=== PATIENT | male | born 1960 | race Caucasian/White ===

== ENCOUNTER 2018-11-14 22:43 | Emergency (ER) | payer MEDICARE, SELFPAY ==
[2018-11-14] VITALS (15 sets, daily range): BP systolic 129–182; BP diastolic 80–91; PULSE 81–94; RESP 9–22; TEMP 36.7; O2SAT 91–100
--- NOTE | 2018-11-14 00:25 | DI.RAD_ITS ---
SYMPTOMS/DIAGNOSIS: LT SIDED PAIN AFTER FALL PA AND LATERAL CHEST AND LEFT RIBS: Comparison is made with chest x-ray dated 6Dec17. The heart size is normal. The aorta shows calcification but is normal in diameter. No pneumothorax is seen. Four views of the left ribs were performed. There is a question of a nondisplaced fracture of the left fifth rib. Degenerative changes are seen in the spine. There has been surgical resection of the distal clavicles bilaterally. Metallic anchors are noted in the left humeral head. IMPRESSION: Question of nondisplaced fracture of the left fifth rib. No evidence of pneumothorax.
[2018-11-14 23:01] LABS: Abs Immature Grans 0.01 k/cumm (0.0-0.09); Absolute Basophil Count 0.04 k/cumm (0.0-0.2); Absolute Lymphocyte Count 1.31 k/cumm (1.2-3.4); Absolute Monocyte Count 0.86 k/cumm (0.11-0.7); Absolute Neutrophil Count 6.47 k/cumm (1.2-6.7); Basophils % 0.5; HGB 14.8 g/dL (13.5-17.5); Immature Grans % 0.1; Lymphocytes % 15.1; Mean Corp. HGB Concentration 35.2 g/dL (32.0-36.0); Mean Corpuscular Hemoglobin 30.6 pg (27.0-33.0); Mean Platelet Volume 10.1 fL (8.0-11.0); Monocytes % 9.9; Neutrophils % 74.4; Platelet Count 197 x1000/uL (130-400); RBC 4.83 m/cumm (4.50-6.00); RBC Distribution Width 14.5 % (11.8-14.1); White Blood Cell Count 8.69 k/cumm (4.4-10.8)
[2018-11-14] MEDS: Normal Saline 1,000 ML 125 ML IV (23:01)
[2018-11-14 23:28] LABS: ALT 33 U/L (12-78); AST 22 U/L (15-37); Alkaline Phosphatase 85 U/L (46-116); Anion Gap 16.2 mmol/L (3-11); BUN 19 mg/dL (7-18); Bilirubin, Total 0.6 mg/dL (0.2-1.0); CO2 22.8 mmol/L (21.0-32.0); CREATININE 1.18 mg/dL (0.70-1.30); Calcium 8.9 mg/dL (8.5-10.1); Chloride 98 mmol/L (98-107); Glucose 150 mg/dL (70-100); NT-proBNP 655 pg/mL; Sodium 137 mmol/L (136-145); Total Protein 7.6 g/dL (6.4-8.2); Troponin I 0.02 ng/mL (0.00-0.06)
[2018-11-14 23:31] LABS: Potassium 2.8 mmol/L (3.5-5.1)
[2018-11-14] MEDS: Potassium Chloride 20 MEQ TABCR 40 MEQ PO (23:45)
--- NOTE | 2018-11-14 23:56 | ED.GENADUL_ITS ---
Discharge Plan Disposition Patient Disposition: HOME Condition: Fair Discharge Details Chief Complaint: Chest Pain Clinical Impression: Fracture of rib, Acute hypokalemia Primary Care Provider: Alex Daniels ED Provider: Pepper Pina Home Meds and New Rx's Prescriptions: New potassium chloride 20 mEq tablet extended release 20 meq PO DAILY Qty: 14 RF: 0 ondansetron HCl [Zofran] 4 mg tablet 4 mg PO QID PRN (Reason: nausea and vomiting) Qty: 10 RF: 0 tramadol 50 mg tablet 50 mg PO TID PRN (Reason: pain) Qty: 7 RF: 0 Continued atorvastatin [Lipitor] 80 MG tablet 80 mg PO DAILY 90 Days Qty: 90 RF: 3 isosorbide mononitrate 30 MG tablet extended release 24 hr 30 mg PO DAILY 90 Days Qty: 90 RF: 3 metoprolol succinate 100 MG tablet extended release 24 hr 100 mg PO DAILY 90 Days Qty: 90 RF: 3 clopidogrel [Plavix] 75 MG tablet 75 mg PO DAILY 90 Days Qty: 90 RF: 3 amlodipine 10 MG tablet 10 mg PO HS 90 Days Qty: 90 RF: 3 nitroglycerin [Nitrostat] 0.4 MG tablet, sublingual 0.4 mg Sublingual DIRECTED PRNQty: 25 RF: 6 hydrochlorothiazide 25 MG tablet 25 mg PO DAILY 90 Days Qty: 90 RF: 3 aspirin [Aspir-Low] 81 MG tablet,delayed release (DR/EC) 81 mg PO DAILY RF: 0 melatonin 3 MG tablet 3 mg PO HS PRNRF: 0 acetaminophen 500 MG tablet 1,000 mg PO PRN PRNRF: 0 losartan 25 MG tablet 50 mg PO DAILY RF: 0 Discharge Instructions Instructions: Rib Fracture (ED), Hypokalemia (ED) Additional Instructions: You have a rib fracture over area of tenderness on chest x-ray. Your cardiac evaluation is reassuring, no evidence of heart attack at this time with a normal EKG and troponin as discussed. Encourage deep breathing to help prevent pneumonia, use incentive spirometer as advised by nursing staff. He may use Tylenol as needed for discomfort. You may augment this with the tramadol as prescribed. Take this medication only as prescribed and keep an safe place. Your potassium was low, this was replenished here but I have prescribed you a daily supplement to keep this up. We will need to have this rechecked with your primary care. Please call them tomorrow to schedule appointment in the next 48 hours. If you develop increased pain, shortness of breath, difficulty breathing or other new/worsening symptoms please seek care urgently once again Referrals: Alex Daniels DO [Primary Care Provider] - Discharge Data Discharge Date/Time-TO BE ENTERED AT DEPARTURE: 11/15/18 02:35 Medical Decision Making Patient 58-year-old male presents today with chief complaint of left-sided chest pain. He reports that pain began after falling 3 days ago. He reports that he was walking outside at night when he tripped over a rock and fell striking the left side of his chest. Patient has ecchymosis and pain to palpation over the left lateral chest wall. Patient does have history of [place] with stent placement. Is concerned that this pain feels similar to when he had a heart attack historically. He reports the pain is not exertional but rather constant. He does have increased pain particularly rotational movements but not as much as simple ambulation. Patient also has been endorsing some fatigue and weakness of the past several weeks. Patient did come back from [place], his mother recently, and has not been evaluated by his primary care regarding this chronic complaint. He denies any fevers or chills. Patient is endorsing pain in the left shoulder but reports the chest pain does not radiate to that, rather patient has chronic pain in the left shoulder that was exacerbated with the fall. Endorses shortness of breath associated with deep breathing and pain elicited with this. On exam, patient appears to be an obese male in no acute distress. He did appear uncomfortable with movements but quickly returns to a comfortable position. Area of ecchymosis is noted on the left lateral chest wall. No palpable deformity. Lungs are clear in all stevens. No palpable bony abnormality in the shoulder. Trauma exam is otherwise unremarkable. Cardiac exam is without acute abnormality. Concern for possible traumatic injury to the chest wall, versus ACS. Patient is not tachycardic, hypoxic. Low suspicion for pulmonary embolism at this time. Patient has not had any infectious symptoms. No cough, fevers or chills. He does report that he has had nausea and has had intermittent vomiting for the past several weeks. Denies abdominal pain, abdomen is soft and nontender at this time. No back pain. EKG was reviewed by Dr. Bazzi. It was compared to previous. She notes findings suggestive of left bundle branch block but this appears to be chronic and unchanged from previous. Patient is currently normal sinus rhythm with a rate of 88. Labs reviewed, troponin is 0.02. Potassium is low at 2.8. We will replenish this 40 mEq orally and 20 IV. This is likely associated with the patient's vomiting. This may also be with striving of the anion gap to 16. BNP is 655. Chest x-ray reviewed by radiologist: FINDINGS: Bones/joints: Subtle cortical irregularity involving the left lateral fifth rib may reflect a subtle hairline fracture best demonstrated on the oblique image. Soft tissues: Normal. IMPRESSION: Subtle cortical irregularity involving the left lateral fifth rib may reflect a subtle hairline fracture best demonstrated on the oblique image. FINDINGS: Lungs: Unremarkable. No consolidation. Pleural space: Unremarkable. No pleural effusion. No pneumothorax. Heart/Mediastinum: Unremarkable. No cardiomegaly. Bones/joints: Widening of the a.c. joints bilaterally may reflect a.c. joint dislocation. This is age-indeterminate. Clinical correlation recommended. IMPRESSION: Widening of the a.c. joints bilaterally may reflect a.c. joint dislocation. This is age-indeterminate. Clinical correlation recommended. Patient is not point tender at the AC joint at this time. He does have cervical shoulder issues as well as surgical correction. I do not feel that this is acute at this time. I discussed the diagnosis of rib fracture with the patient. He will be given incentive spirometer. We discussed the risks associated with shallow breathing and pneumonia. Encourage deep breathing. At this point, his symptoms have been ongoing for the past 3 days and troponin remains 0.02, and I feel that repeat is necessarily at this time. His chest pain is likely driven from his acute traumatic injury. I did advise that he will need to continue with potassium supplementation, prescription for this will be given. We will also prescribe Zofran to help the nausea vomiting. Advise close follow-up with primary care physician, and as for him to be seen in the next 2 to 3 days. He was given strict return precautions. All the questions and concerns were addressed and he is in agreement this plan HPI General Mode of arrival: EMS . Date/Time Provider Initiated Documentation: 11/14/18 22:47 . Limitations to Documentation: no limitations . Information obtained by: patient, EMS and RN notes reviewed . History of Present Illness 58 year old M presents to the emergency department with the chief complaint of left sided chest pain, described as moderate, Quality is described as aching, and is localized to the chest. Patient reports no radiation. Patient started experiencing this day(s) (3) and it has been constant. No relieving factors improve symptom(s), Movement worsens symptoms . Patient notes chest pain and shortness of breath (endorses pain with inspiration); denies cough, diaphoresis, fever/chills, headaches, nausea/vomiting, rash, syncope and weakness. Patient did receive the following treatments prior to arrival, other (received nitro and fentanyl from EMS) Related Data Home Medications Medication Instructions Recorded Confirmed aspirin [Aspir-Low] 81 mg PO DAILY 08/04/13 11/14/18 acetaminophen 1,000 mg PO PRN PRN 12/09/17 11/14/18 melatonin 3 mg PO HS PRN 12/09/17 11/14/18 amlodipine 10 mg PO HS 90 Days #90 tab-cap 01/06/18 atorvastatin [Lipitor] 80 mg PO DAILY 90 Days #90 tab-cap 01/06/18 clopidogrel [Plavix] 75 mg PO DAILY 90 Days #90 tab-cap 01/06/18 hydrochlorothiazide 25 mg PO DAILY 90 Days #90 tab-cap 01/06/18 isosorbide mononitrate 30 mg PO DAILY 90 Days #90 tab-cap 01/06/18 metoprolol succinate 100 mg PO DAILY 90 Days #90 tab-cap 01/06/18 nitroglycerin [Nitrostat] 0.4 mg SUBLINGUAL DIRECTED PRN 01/06/18 11/14/18 #25 tab-cap losartan 50 mg PO DAILY 11/14/18 11/14/18 ondansetron HCl [Zofran] 4 mg PO QID PRN #10 tab 11/15/18 potassium chloride 20 meq PO DAILY #14 tab 11/15/18 tramadol 50 mg PO TID PRN #7 tab 11/15/18 Previous Rx's Medication Instructions Recorded amlodipine 10 mg PO HS 90 Days #90 tab-cap 01/06/18 atorvastatin [Lipitor] 80 mg PO DAILY 90 Days #90 tab-cap 01/06/18 clopidogrel [Plavix] 75 mg PO DAILY 90 Days #90 tab-cap 01/06/18 hydrochlorothiazide 25 mg PO DAILY 90 Days #90 tab-cap 01/06/18 isosorbide mononitrate 30 mg PO DAILY 90 Days #90 tab-cap 01/06/18 metoprolol succinate 100 mg PO DAILY 90 Days #90 tab-cap 01/06/18 ondansetron HCl [Zofran] 4 mg PO QID PRN #10 tab 11/15/18 potassium chloride 20 meq PO DAILY #14 tab 11/15/18 tramadol 50 mg PO TID PRN #7 tab 11/15/18 Allergies Allergy/AdvReac Type Severity Reaction Status Date / Time codeine Allergy Intermediate Wheezing Unverified 11/14/18 22:50 Review of Systems Constitutional Reports as per HPI, Denies chills, Denies fever(s), Denies headache(s), Denies lethargy and Denies poor appetite Eyes Denies change in vision ENT Denies dizziness and Denies headache(s) Cardiovascular Reports as per HPI, Reports chest pain, Reports chest pain at rest, Reports chest pain with activity, Denies syncope, Denies pedal edema, Denies leg edema, Denies lightheadedness, Denies radiating jaw, neck or arm pain (has isolated left shoulder pain as well, nonradiating), Denies palpitations, Reports dyspnea (pain with deep inspiration makes him feel SOB) and Denies dyspnea on exertion Respiratory Reports as per HPI, Denies chest congestion, Denies cough, Denies pain on inspiration, Denies pain with cough, Reports dyspnea (pain with deep inspiration makes him feel SOB), Denies dyspnea on exertion and Denies wheezing Gastrointestinal Reports as per HPI, Denies abdominal pain, Denies diarrhea, Denies nausea and Denies vomiting Genitourinary Denies system reviewed and no additional complaints, except as docu (denies change in urinary habits) Musculoskeletal Reports as per HPI, Denies back pain and Reports other (chronic left shoulder pain) Integumentary/Breasts Reports as per HPI, Denies rash and Reports other (ecchymosis left chest) Neurologic Reports as per HPI, Denies dizziness, Denies syncope and Denies headache(s) Endocrine Denies palpitations Allergic/Immunologic Denies wheezing PFSH Family History Mother No problems noted. Father No problems noted. Brother No problems noted. Social History Smoking/Tobacco Use Status: Current every day Tobacco Type: cigarettes Smoking cigarettes per day: 15 Alcohol Intake: current Alcohol Intake frequency: a few times a month Drug use: Never Do you feel safe in your relationship?: Yes Exam Const General: cooperative, healthy appearing, uncomfortable (appears uncomfortable with movement), no acute distress and well developed Nutritional Appearance: well nourished and overweight Orientation: alert, awake and oriented x3 HENMT Head: normal to inspection Ears: hearing grossly normal bilaterally Mouth: moist mucous membranes Chest Chest: normal inspection of the chest, no crepitus and localized rib tenderness with anteroposterior compression (left side with associated ecchymosis) Resp Effort & Inspection: normal respiratory effort, able to speak in complete sentences and no respiratory distress Auscultation: clear to auscultation bilaterally, no rales, no rhonchi and no wheezes Cardio Rate: regular rate Rhythm: regular rhythm Heart Sounds: S1 normal and S2 normal GI Inspection: normal to inspection, no edema and non-distended Palpation: soft, no hepatosplenomegaly, not firm, no guarding, not rigid and nontender Auscultation: normal bowel sounds Back/Spine/Pelvis Back: no CVA tenderness Thoracic/Lumbar Spine: thoracic and lumbar spine normal to inspection Skin General skin exam: no rashes or lesions noted Trauma: no lacerations or abrasions Neuro General: alert, awake and oriented x3 Cognition: normal cognition Speech: speech normal Gait: normal gait Extrem General: normal to inspection, normal capillary refill, no pedal edema, no calf tenderness and normal gait Psych Appearance: grossly normal and well kempt Mental Status: mental status grossly normal Speech and Movement: speech and movement normal
[2018-11-15] VITALS (24 sets, daily range): BP systolic 137–178; BP diastolic 77–89; PULSE 68–85; RESP 12–20; TEMP 36.4; O2SAT 93–99
[2018-11-15 00:11] LABS: PTT Activated 23.2 sec (21.0-31.4); Prothrombin Time 10.3 sec (9.3-11.0)
[2018-11-15] MEDS: POTASSIUM CHLORIDE 10 MEQ/100 ML BAG 100 MEQ IVPB ×2 (00:11→01:15)
[2018-11-15] MEDS: Potassium Chloride 20 MEQ TABCR 40 MEQ PO (00:34)
--- NOTE | 2018-11-15 00:40 | DI.VRAD_ITS ---
EXAM: XR Left Ribs, 2 Views EXAM DATE/TIME: 11/14/2018 10:50 PM CLINICAL HISTORY: 58 years old, male; Injury or trauma; Initial encounter; Blunt trauma (contusions or hematomas); Chest wall and rib area, left side; Injury date: 11/13/18; Injury details: Fell landing on left side. Left anterior chest wall pain. No specific pain site but more spread out on upper anterior L side of chest; Prior surgery; Surgery date: 6+ months; Surgery type: Shoulder surgery; Patient HX: Fall with upper anterior left sided chest wall pain TECHNIQUE: Imaging protocol: XR Left ribs, 2 views. COMPARISON: CR PORTABLE CHEST ONE VIEW 06/09/2017 2:39 PM FINDINGS: Bones/joints: Subtle cortical irregularity involving the left lateral fifth rib may reflect a subtle hairline fracture best demonstrated on the oblique image. Soft tissues: Normal. IMPRESSION: Subtle cortical irregularity involving the left lateral fifth rib may reflect a subtle hairline fracture best demonstrated on the oblique image. EXAM: XR Chest, 2 Views EXAM DATE/TIME: 11/14/2018 10:50 PM CLINICAL HISTORY: 58 years old, male; Injury or trauma; Initial encounter; Blunt trauma (contusions or hematomas); Chest wall and rib area, left side; Injury date: 11/13/18; Injury details: Fell landing on left side. Left anterior chest wall pain. No specific pain site but more spread out on upper anterior L side of chest; Prior surgery; Surgery date: 6+ months; Surgery type: Shoulder surgery; Patient HX: Fall with upper anterior left sided chest wall pain TECHNIQUE: Imaging protocol: XR of the chest, 2 views. COMPARISON: CR PORTABLE CHEST ONE VIEW 06/09/2017 2:39 PM FINDINGS: Lungs: Unremarkable. No consolidation. Pleural space: Unremarkable. No pleural effusion. No pneumothorax. Heart/Mediastinum: Unremarkable. No cardiomegaly. Bones/joints: Widening of the a.c. joints bilaterally may reflect a.c. joint dislocation. This is age-indeterminate. Clinical correlation recommended. IMPRESSION: Widening of the a.c. joints bilaterally may reflect a.c. joint dislocation. This is age-indeterminate. Clinical correlation recommended. Dictated and Authenticated by: Epifanio Staton MD. Ordering:MARK Pabon MD
[2018-11-15] MEDS: traMADol 50 MG TAB PO (01:53)
[2018-11-15] MEDS: Acetaminophen 500 MG TAB 1000 MG PO (02:29)
--- NOTE | 2018-11-16 08:30 | PDOC.ERCMPRO ---
Care Management Progress Note 11/15-Dr. Ramirez requested assistance with a PCP (Jeremiah) f/u in 2-3 days for CP and hypokalemia. Referral faxed to [facility] this am.
== END 2018-11-15 02:35 | disposition home or self-care (01) ==
LOC: ER 11-15 02:43
PROVIDERS: Emergency Provider Physician Assistant; PCP Family Medicine
DX: S22.32XA Fracture of one rib, left side, initial encounter for closed fracture (principal); E87.6 Hypokalemia; R11.2 Nausea with vomiting, unspecified; W01.0XXA Fall on same level from slipping, tripping and stumbling without subsequent striking against object, initial encounter
CPT/HCPCS: 36415; 80053; 93005; 96361; 96365; 96366; 96367; 96368; 96375; 99285; 71046; 71100; 83735; 83880; 84484; 85025; 85610; 85730; 93010; J3480

== ENCOUNTER 2019-01-28 19:20 | Inpatient (IN) | payer MEDICARE, SELFPAY ==
[2019-01-28] VITALS (21 sets, daily range): BP systolic 130–178; BP diastolic 68–88; PULSE 77–110; RESP 10–22; TEMP 36.6–37.1; O2SAT 95–99
--- NOTE | 2019-01-28 19:32 | DI.RAD_ITS ---
SYMPTOM/DIAGNOSIS: LT SIDED CHEST PAIN CHEST X-RAY: Portable AP view. Comparison CT scan from the same day. Comparison chest x- ray is 11/14/18 Heart size and pulmonary vasculature are within normal limits. There is a healing fracture of the anterior aspect of the left 2nd rib. This can be visualized on the CT scan from the same day. The lungs are clear. No effusions or pneumothoraces are identified. IMPRESSION: No acute pulmonary process.
--- NOTE | 2019-01-28 19:33 | W.ED.GENAD ---
Discharge Plan Disposition Patient Disposition: [facility] INPATIENT Condition: Stable Discharge Details Chief Complaint: Chest Pain Clinical Impression: Hypertensive urgency, Bilateral claudication of lower limb Primary Care Provider: Alex Daniels ED Provider: Ammon Rodriguez Home Meds and New Rx's Prescriptions: No Action atorvastatin [Lipitor] 80 MG tablet 80 mg PO DAILY 90 Days Qty: 90 RF: 3 isosorbide mononitrate 30 MG tablet extended release 24 hr 30 mg PO DAILY 90 Days Qty: 90 RF: 3 metoprolol succinate 100 MG tablet extended release 24 hr 100 mg PO DAILY 90 Days Qty: 90 RF: 3 amlodipine 10 MG tablet 10 mg PO HS 90 Days Qty: 90 RF: 3 nitroglycerin [Nitrostat] 0.4 MG tablet, sublingual 0.4 mg Sublingual DIRECTED PRNQty: 25 RF: 6 hydrochlorothiazide 25 MG tablet 25 mg PO DAILY 90 Days Qty: 90 RF: 3 aspirin [Aspir-Low] 81 MG tablet,delayed release (DR/EC) 81 mg PO DAILY RF: 0 melatonin 3 MG tablet 3 mg PO HS PRNRF: 0 acetaminophen 500 MG tablet 1,000 mg PO PRN PRNRF: 0 losartan 25 MG tablet 50 mg PO DAILY RF: 0 potassium chloride 20 mEq tablet extended release 20 meq PO DAILY Qty: 14 RF: 0 ondansetron HCl [Zofran] 4 mg tablet 4 mg PO QID PRN (Reason: nausea and vomiting) Qty: 10 RF: 0 Medical Decision Making 58-year-old male, receipt of a smoker, with a history of coronary artery disease (prior inferior wall myocardial infarction 2009 status post right coronary artery stenting). Presents with chest pain he states began this morning associated with nausea and vomiting. States that he recently ran out of his long-acting nitrate and is not been taking it for approximately 7 to 10 days time. He states he is taking his other medications but may not have had a complete supply of meds since returning to [place] from living in [place]. He took 4-5 nitroglycerin at home with no change to his pain. He arrives with ongoing discomfort, pulses 100 with a blood pressure 175/79. EKG reveals lateral T wave inversions. 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 Patient with minimal response to nitroglycerin, given 4 mg of morphine with relief of discomfort. Laboratories reveal normal troponin and BNP. Potassium low at 2.9 and supplemented. Differential diagnosis includes hypertensive urgency, acute coronary syndrome, must exclude PE and possibly bowel obstruction given his vomiting. Patient referred for CT scan of the chest abdomen and pelvis which does not show any acute findings; it does reveal bilateral high-grade stenosis of the common iliac arteries. He is at risk for claudication which I did discuss with him. He remains pain-free. However, given his noncompliance with medications including long-acting nitrates, his ongoing cardiac risk factors and reset of his tobacco use, I do feel he merits admission for serial cardiac enzymes, potassium supplementation. Lab Data Lab results reviewed: Yes I reviewed the patient's lab results. Laboratory Results - last 24 hr 01/28/19 01/28/19 01/28/19 19:28 19:28 19:31 WBC Cancelled RBC Cancelled Hgb Cancelled Hct Cancelled MCV Cancelled MCH Cancelled MCHC Cancelled RDW Cancelled Plt Count Cancelled MPV Cancelled Immature Gran % Neutrophils % Lymphocytes % Monocytes % Eosinophils % Basophils % Absolute Neutrophils Absolute Lymphocytes Absolute Monocytes Absolute Eosinophils Absolute Basophils PT 9.9 INR 1.0 APTT 21.9 Sodium Cancelled Potassium Cancelled Chloride Cancelled Carbon Dioxide Cancelled Anion Gap Cancelled BUN Cancelled Creatinine Cancelled Estimated GFR/1.73 m2 Cancelled Glucose Cancelled Calcium Cancelled Total Bilirubin Cancelled AST Cancelled ALT Cancelled Alkaline Phosphatase Cancelled Troponin I Cancelled NT-Pro-B Natriuret Pep Total Protein Cancelled Albumin Cancelled 01/28/19 01/28/19 19:31 19:31 WBC 8.63 RBC 4.68 Hgb 14.3 Hct 40.1 MCV 85.7 MCH 30.6 MCHC 35.7 RDW 13.1 Plt Count 200 MPV 9.6 Immature Gran % 0.2 Neutrophils % 72.5 Lymphocytes % 19.2 Monocytes % 7.4 Eosinophils % 0.2 Basophils % 0.5 Absolute Neutrophils 6.25 Absolute Lymphocytes 1.66 Absolute Monocytes 0.64 Absolute Eosinophils 0.02 Absolute Basophils 0.04 PT INR APTT Sodium 138 Potassium 2.9 L* Chloride 100 Carbon Dioxide 23.6 Anion Gap 14.4 H BUN 18 Creatinine 1.21 Estimated GFR/1.73 m2 >= 60.00 Glucose 115 H Calcium 9.4 Total Bilirubin 0.4 AST 22 ALT 46 Alkaline Phosphatase 80 Troponin I < 0.05 NT-Pro-B Natriuret Pep 114 Total Protein 8.0 Albumin 4.1 ECG Data Attestation: I personally reviewed and interpreted this ECG (s) as follows: Interpretation: Normal sinus rhythm with a rate of 99, the QRS is narrow, there is T wave inversions present in the lateral leads and nonspecific ST segment flattening throughout the inferolateral leads. 1 compared to EKG from November 14, 2008, the only significant difference is lateral T wave changes HPI General Mode of arrival: EMS. Date/Time Provider Initiated Documentation: 01/28/19 19:25. Limitations to Documentation: no limitations. Information obtained by: patient. History of Present Illness 58 year old M presents to the emergency department with the chief complaint of Chest pain, described as moderate and similar to prior episodes, Quality is described as dull and constant, and is localized to the chest and left. Patient reports no radiation. Patient started experiencing this hour(s) and it has been constant. No relieving factors improve symptom(s), No exacerbating factors reported . Patient notes no other symptoms.. Patient did receive the following treatments prior to arrival, none Related Data Home Medications Medication Instructions Recorded Confirmed aspirin [Aspir-Low] 81 mg PO DAILY 08/04/13 01/28/19 acetaminophen 1,000 mg PO PRN PRN 12/09/17 01/28/19 melatonin 3 mg PO HS PRN 12/09/17 01/28/19 amlodipine 10 mg PO HS 90 Days #90 tab-cap 01/06/18 01/28/19 atorvastatin [Lipitor] 80 mg PO DAILY 90 Days #90 tab-cap 01/06/18 01/28/19 hydrochlorothiazide 25 mg PO DAILY 90 Days #90 tab-cap 01/06/18 01/28/19 isosorbide mononitrate 30 mg PO DAILY 90 Days #90 tab-cap 01/06/18 01/28/19 metoprolol succinate 100 mg PO DAILY 90 Days #90 tab-cap 01/06/18 01/28/19 nitroglycerin [Nitrostat] 0.4 mg SUBLINGUAL DIRECTED PRN 01/06/18 01/28/19 #25 tab-cap losartan 50 mg PO DAILY 11/14/18 01/28/19 ondansetron HCl [Zofran] 4 mg PO QID PRN #10 tab 11/15/18 01/28/19 potassium chloride 20 meq PO DAILY #14 tab 11/15/18 01/28/19 Previous Rx's Medication Instructions Recorded amlodipine 10 mg PO HS 90 Days #90 tab-cap 01/06/18 atorvastatin [Lipitor] 80 mg PO DAILY 90 Days #90 tab-cap 01/06/18 hydrochlorothiazide 25 mg PO DAILY 90 Days #90 tab-cap 01/06/18 isosorbide mononitrate 30 mg PO DAILY 90 Days #90 tab-cap 01/06/18 metoprolol succinate 100 mg PO DAILY 90 Days #90 tab-cap 01/06/18 ondansetron HCl [Zofran] 4 mg PO QID PRN #10 tab 11/15/18 potassium chloride 20 meq PO DAILY #14 tab 11/15/18 Allergies Allergy/AdvReac Type Severity Reaction Status Date / Time codeine Allergy Intermediate Wheezing Unverified 01/28/19 19:28 General Stated Complaint: Chest Pain HALLIE: 2 Review of Systems Review of Systems 6 systems reviewed and otherwise negative. Patient [place] [address] in the [facility]. He states for weeks time he has had pain in his legs with ambulation, it resolves with rest PFSH Family History Mother No problems noted. Father No problems noted. Brother No problems noted. Social History Smoking/Tobacco Use Status: Current every day Tobacco Type: cigarettes Alcohol Intake: current Alcohol Intake frequency: a few times a month Drug use: Never Do you feel safe at home: Yes Do you feel safe in your relationship?: No Exam Narrative Exam Narrative: GEN: awake, alert, oriented 3. Pleasant, well groomed, interactive. HEAD: Normocephalic, atraumatic ENT: Mucous membranes moist, oropharynx unremarkable, External ear exam unremarkable EYES: PERRL, EOMI NECK: Full ROM, no PERRY, no menigismus CHEST/RESP: Nontender, clear to auscultation bilateral, no wheeze/rhonchi/rales CARDIOVASCULAR: RRR, no murmur, rub sergio. 2+ Rad pulse bilateral ABDOMEN: Soft, nontender, no mass. +Bowel sounds EXT: Full ROM, no edema, no rash Neuro: Grossly normal neurologic exam, conversant, interactive. Psych: Speech fluent, thoughts congruent, affect normal Course Vital Signs Temperature 37.1 C 01/28/19 19:23 Pulse 110 H 01/28/19 19:23 Respiratory Rate 16 01/28/19 19:23 Blood Pressure 175/79 H 01/28/19 19:23 Pulse Oximetry 98 01/28/19 19:23 Temperature 37.1 C 01/28/19 19:23 Pulse 110 H 01/28/19 19:23 Respiratory Rate 16 01/28/19 19:23 Blood Pressure 175/79 H 01/28/19 19:23 Blood Pressure Position Sitting 01/28/19 19:23 Pulse Oximetry 98 01/28/19 19:23 Oxygen Delivery Method Room Air 01/28/19 19:23 Oxygen Flow Rate 0 01/28/19 19:23 Pain Level 8 01/28/19 19:23
[2019-01-28 19:41] LABS: Abs Immature Grans 0.02 k/cumm (0.0-0.09); Absolute Basophil Count 0.04 k/cumm (0.0-0.2); Absolute Eosinophil Count 0.02 k/cumm (0.0-0.7); Absolute Lymphocyte Count 1.66 k/cumm (1.2-3.4); Absolute Monocyte Count 0.64 k/cumm (0.11-0.7); Absolute Neutrophil Count 6.25 k/cumm (1.2-6.7); Basophils % 0.5; Eosinophils % 0.2; HCT 40.1 % (40.0-50.0); HGB 14.3 g/dL (13.5-17.5); Immature Grans % 0.2; Lymphocytes % 19.2; Mean Corp. HGB Concentration 35.7 g/dL (32.0-36.0); Mean Corpuscular Hemoglobin 30.6 pg (27.0-33.0); Mean Corpuscular Volume 85.7 fL (80-95); Mean Platelet Volume 9.6 fL (8.0-11.0); Monocytes % 7.4; Neutrophils % 72.5; Platelet Count 200 x1000/uL (130-400); RBC 4.68 m/cumm (4.50-6.00); RBC Distribution Width 13.1 % (11.8-14.1); White Blood Cell Count 8.63 k/cumm (4.4-10.8)
[2019-01-28] MEDS: Aspirin 81 MG CHEW 324 MG CH (19:49)
[2019-01-28] MEDS: Normal Saline 1,000 ML 125 ML IV (19:53)
[2019-01-28 19:56] LABS: PTT Activated 21.9 sec (21.0-31.4); Prothrombin Time 9.9 sec (9.3-11.0)
--- NOTE | 2019-01-28 20:00 | DI.VRAD_ITS ---
EXAM: XR Chest, 1 View EXAM DATE/TIME: 01/28/2019 7:33 PM CLINICAL HISTORY: 58 years old, male; Other: Lt sided chest pain TECHNIQUE: Imaging protocol: XR of the chest, 1 view. COMPARISON: CR PORTABLE CHEST ONE VIEW 06/09/2017 2:39 PM FINDINGS: Lungs: Unremarkable. No consolidation. Pleural space: Unremarkable. No pleural effusion. No pneumothorax. Heart/Mediastinum: Unremarkable. No cardiomegaly. Vasculature: Atherosclerosis. Bones/joints: Left rotator cuff anchors.. IMPRESSION: No acute finding. Dictated and Authenticated by: Idalia Irvin MD. Ordering:LISBETH Verde MD
[2019-01-28 20:04] LABS: ALT 46 U/L (12-78); AST 22 U/L (15-37); Albumin 4.1 g/dL (3.4-5.0); Alkaline Phosphatase 80 U/L (46-116); Anion Gap 14.4 mmol/L (3-11); BUN 18 mg/dL (7-18); Bilirubin, Total 0.4 mg/dL (0.2-1.0); CO2 23.6 mmol/L (21.0-32.0); CREATININE 1.21 mg/dL (0.70-1.30); Calcium 9.4 mg/dL (8.5-10.1); Chloride 100 mmol/L (98-107); Glucose 115 mg/dL (70-100); NT-proBNP 114 pg/mL; Sodium 138 mmol/L (136-145)
[2019-01-28 20:07] LABS: Potassium 2.9 mmol/L (3.5-5.1); Troponin I < 0.05 ng/mL (0.00-0.06)
[2019-01-28] MEDS: MORPHine 10 MG/ML VIAL 4 MG IVP (20:08)
--- NOTE | 2019-01-28 20:08 | DI.CT_ITS ---
SYMPTOM/DIAGNOSIS: LEFT CHEST AND LEFT UPPER QUADRANT PAIN. CARDIAC HX. CT CHEST: There is a 1.2 cm hypodense lesion in the right lobe of the thyroid gland. Non-emergent thyroid ultrasound may be obtained for further evaluation. The thoracic aorta is intact. No aneurysmal dilatation is seen. Heart size is within normal limits. No significant pericardial effusion is seen. Coronary artery calcifications are present. No significant thoracic adenopathy, pleural effusion or pneumothorax is identified. Paraseptal emphysematous changes are seen in the lungs. Mild central lobular emphysematous changes are seen. No focal consolidating infiltrates are present. Dependent atelectatic changes are seen in the lung bases. No acute osseous abnormality is identified. IMPRESSION: No acute pulmonary process. CT ABDOMEN AND PELVIS: The liver is normal in size. There are a few nonspecific hypodensities seen within the liver. They are too small for further characterization but likely reflect small cysts. The portal, superior mesenteric and splenic veins are patent. The gallbladder is negative. There is no biliary ductal dilatation. The pancreas, spleen, and adrenal glands are unremarkable. There are multiple hypodensities seen within the kidneys. They are too small for further characterization but likely reflect cysts. No obstructive uropathy is seen. The urinary bladder is intact. The reproductive organs are unremarkable. The abdominal aorta is of normal caliber. No aneurysmal dilatation is seen. There is significant calcification seen at the origins of the common iliac arteries suspicious for high grade stenosis. No significant abdominal or pelvic adenopathy, ascites or pneumoperitoneum is seen. Post surgical changes of a prior anterior abdominal wall hernia repair with mesh placement is noted. The bowel shows no evidence of obstruction or inflammation. There is a normal appendix present. No acute osseous abnormality is identified. IMPRESSION: No acute abnormality. 2. Marked atherosclerosis seen at the origins of the common iliac artery suggesting high grade stenosis.
[2019-01-28 20:15] LABS: ALT 44 U/L (12-78); AST 21 U/L (15-37); Albumin 4.2 g/dL (3.4-5.0); Alkaline Phosphatase 81 U/L (46-116); Bilirubin, Direct 0.12 mg/dL (0.00-0.20); Bilirubin, Total 0.4 mg/dL (0.2-1.0); Magnesium 1.9 mg/dL (1.8-2.4)
[2019-01-28] MEDS: POTASSIUM CHLORIDE 20 MEQ/100 ML BAG 50 MEQ IVPB (20:46)
[2019-01-28] MEDS: Omnipaque 350 MG/ML 100 ML BTL IJ (20:46)
--- NOTE | 2019-01-28 20:58 | DI.VRAD_ITS ---
EXAM: CT Chest With Contrast EXAM DATE/TIME: 01/28/2019 8:09 PM CLINICAL HISTORY: 58 years old, male; Abdominal pain; Localized; Left upper quadrant (luq); Left-sided chest pain; Patient HX: Left chest and luq pain; Cardiac HX; Additional info: Per PT: Heart attack in 2008 TECHNIQUE: Imaging protocol: Axial computed tomography images of the chest with intravenous contrast. Coronal and sagittal reformatted images were created and reviewed. COMPARISON: CT CHEST FOR PE, ABD PELVIS W 12/09/2017 1:02 AM FINDINGS: Thyroid: 1.2 cm right thyroid nodule. Lungs: Unremarkable. No consolidation. No masses. Pleural space: Unremarkable. No pneumothorax. No pleural effusion. Heart: Unremarkable. No cardiomegaly. No pericardial effusion. Aorta: Aortic and coronary atherosclerosis. Lymph nodes: Unremarkable. No enlarged lymph nodes. Bones/joints: Old left rib fractures. Soft tissues: Unremarkable. IMPRESSION: No acute finding. EXAM: CT Abdomen and Pelvis With Contrast EXAM DATE/TIME: 01/28/2019 8:09 PM CLINICAL HISTORY: 58 years old, male; Abdominal pain; Localized; rib fractures. upper quadrant (luq); Left-sided chest pain; Patient HX: Left chest and luq pain; Cardiac HX; Additional info: Per PT: Heart attack in 2008 TECHNIQUE: Imaging protocol: Axial computed tomography images of the abdomen and pelvis with intravenous contrast. Coronal and sagittal reformatted images were created and reviewed. COMPARISON: CT CHEST FOR PE, ABD PELVIS W 12/09/2017 1:02 AM FINDINGS: Liver: 8mm nonspecific hypodensity in the right hepatic lobe. Gallbladder and bile ducts: Normal. No calcified stones. No ductal dilation. Pancreas: Normal. No ductal dilation. Spleen: Normal. No splenomegaly. Adrenals: Normal. No mass. Kidneys and ureters: Subcentimeter bilateral renal cysts. Stomach and bowel: Normal. No obstruction. No mucosal thickening. Appendix: No evidence of appendicitis. Intraperitoneal space: Normal. No free air. No significant fluid collection. Vasculature: Atherosclerosis. High-grade stenosis in the origins of the common iliac arteries due to atherosclerosis. Lymph nodes: Normal. No enlarged lymph nodes. Bladder: Unremarkable as visualized. Reproductive: Unremarkable as visualized. Bones/joints: No acute fracture. No dislocation. Soft tissues: Anterior abdominal wall mesh in place. IMPRESSION: 1. No acute finding. 2. High-grade stenosis in the origins of the common iliac arteries due to atherosclerosis. Dictated and Authenticated by: Idalia Irvin MD. Ordering:LISBETH Verde MD
--- NOTE | 2019-01-28 21:25 | HPE_ITS ---
Date of service: 01/28/19 Time of Service: 21:25 Assessment and Plan (1) Chest pain, atypical: Current visit: Yes Status: Acute This is a 58-year-old gentleman who is noncompliant with medical care, who awakened with retrosternal chest pressure and pain which radiated into his left arm and had associated symptoms but did not respond to nitroglycerin sublingually. He had several hours of this pain and a negative evaluation in the ED for acute ischemic changes on EKG as well as a negative troponin. He c ontinues to have chest discomfort that does not respond to morphine and he sleeps in between dosing. He is a smoker but will not give him nicotine replacement with patient not asking for NicoDerm. He will be given Ativan as needed. This may augment his pain control. Is nontender to palpation over his chest wall and his pressure seems to be in the abdomen and lower chest area. He will be treated with PPI, continue morphine for pain control and be monitored on telemetry with trending of troponins. Cardiology might be consulted in the morning appropriate. Because of his short run of V. tach I will give him IV magnesium though his magnesium level was low normal and he is already on treat ent for hypokalemia. This episode was asymptomatic and he was awake and talking at the time. His full CODE STATUS will be respected. (2) Hypokalemia: Current visit: Yes Status: Acute Patient is chronically on HCTZ and may not always take his potassium supplement. Replace IV potassium overnight and continue oral potassium. Follow-up lab in the morning. He also was given magnesium which may help with this problem. (3) HTN (hypertension) with goal to be determined: Current visit: Yes Status: Chronic [id number] when he first presented with pain and patient is noncompliant with medical therapy. Restart medical therapy and monitor in the hospital. I will increase his metoprolol to 150 mg daily with split dosing while he is in the hospital. (4) CAD S/P percutaneous coronary angioplasty: Current visit: Yes Status: Chronic Known CAD and also appears to have significant atherosclerotic narrowing of his iliac arteries with no history of significant claudication and no edema in his lower extremities. Patient need to be more aggressive with cardiovascular risk control and we will comply with medical therapy. As stated above with his atypical chest pain discussion cardiology consultation during this hospital stay may be appropriate. Patient has not seen a layout worker for 2 years. History of Present Illness Chief Complaint: Chest pain Narrative: This is a 58-year-old gentleman with history of CAD status post stenting of his RCA in 2008 who awakened with chest pressure and pain this morning. He has no significant history of reflux or esophagitis but does take Zofran at times for nausea. He is noncompliant with his medical therapy living between [place] and [place] and not always pic yana up his medications on time or taking them daily. With his chest pressure this morning he attempted to take nitroglycerin sublingually which was ineffective. He is supposed to be on daily long-acting nitrates which he has been missing. He had associated nausea with his chest pressure as well as dyspnea and mild diaphoresis. His left arm also began to feel numb and unusual. Because of his persistent symptoms and lack of response to nitroglycerin he reported to the ED for evaluation. Initial evaluation was negative for any acute ischemic EKG changes though there was some mild T wave abnormalities and the troponin was negative. He was hypertensive which responded to therapy in the ER and was given nitroglycerin sublingually which did not relieve the chest pressure but morphine IV did give him relief. He was evaluated with CT of the chest, abdomen and pelvis which was unrevealing except for high-grade stenosis in the origins of the common iliac arteries due to atherosclerosis. There was no mention of PE with CT of the chest for PE ordered. Pertinent review of systems positive for the patient being overweight and noncompliant with his medical therapy living off the grid in a trailer in both [place] and [place]. He does smoke tobacco but does not take any inhalers. He does not drink alcohol. He denies any respiratory symptoms other than his acute dyspnea with his chest discomfort. He has no GI or complaints. Patient is a full code. Review of Systems Review of Systems 13 point review of systems otherwise unrevealing or as per HPI and stable. [facility] Medical History CAD S/P percutaneous coronary angioplasty (Acute) HTN (hypertension) with goal to be determined (Acute) Hypokalemia (Acute) Family History Mother No problems noted. Father No problems noted. Brother No problems noted. Social History Smoking/Tobacco Use Status: Current every day Tobacco Type: cigarettes Alcohol Intake: current Alcohol Intake frequency: a few times a month Drug use: Never Do you feel safe at home: Yes Do you feel safe in your relationship?: No Meds Home Medications Medication Instructions Recorded Confirmed Type aspirin [Aspir-Low] 81 mg PO DAILY 08/04/13 01/28/19 History acetaminophen 1,000 mg PO PRN PRN 12/09/17 01/28/19 History melatonin 3 mg PO HS PRN 12/09/17 01/28/19 History amlodipine 10 mg PO HS 90 Days #90 tab-cap 01/06/18 01/28/19 Rx atorvastatin [Lipitor] 80 mg PO DAILY 90 Days #90 tab-cap 01/06/18 01/28/19 Rx hydrochlorothiazide 25 mg PO DAILY 90 Days #90 tab-cap 01/06/18 01/28/19 Rx isosorbide mononitrate 30 mg PO DAILY 90 Days #90 tab-cap 01/06/18 01/28/19 Rx metoprolol succinate 100 mg PO DAILY 90 Days #90 tab-cap 01/06/18 01/28/19 Rx nitroglycerin [Nitrostat] 0.4 mg SUBLINGUAL DIRECTED PRN 01/06/18 01/28/19 History #25 tab-cap losartan 50 mg PO DAILY 11/14/18 01/28/19 History ondansetron HCl [Zofran] 4 mg PO QID PRN #10 tab 11/15/18 01/28/19 Rx potassium chloride 20 meq PO DAILY #14 tab 11/15/18 01/28/19 Rx Allergies Allergy/AdvReac Type Severity Reaction Status Date / Time codeine Allergy Intermediate Wheezing Unverified 01/28/19 19:28 Exam Narrative Exam Narrative: General: Patient appears older than stated age, obese and multiple tattoos appearing unkempt. He is alert and oriented x3 and in no acute distress. He was asleep when I approached him but when awakened he still has chest pressure left lower sternal chest area. HEENT: Normocephalic, eyes with pupils equal and react to light symmetrically and sclera anicteric, extraocular movement intact. Oropharynx with pink moist mucosa and poor dentition. Ears and nose are normal. Neck: Supple without JVD. Lungs: Bronchovesicular breath sounds diffusely but clear to auscultation and percussion without increased expiratory phase or adventitious sounds with no wheezing, rhonchi or rales. Back: Stooped posture without CVA tenderness. Heart: Regular rate and rhythm without murmurs gallops appreciated. Sounds are distant. (Patient did have about 18 beat run of V. tach on the telemetry with no symptoms at the time). Abdomen: Obese contour. Soft and nontender to palpation without palpable hepatosplenomegaly. Bowel sounds positive in all quadrants. Genitalia/Rectal exam: Deferred. Extremities: Without clubbing cyanosis or pitting edema. Skin: Tanned, warm and dry with multiple tattoos. No appreciable masses. Skin turgor normal. Neuro: Cranial nerves II through XII grossly intact, motor-sensory grossly intact without focalizing. Results Imaging Imaging Studies: EXAM: CT Chest With Contrast EXAM DATE/TIME: 01/28/2019 8:09 PM CLINICAL HISTORY: 58 years old, male; Abdominal pain; Localized; Left upper quadrant (luq); Left-sided chest pain; Patient HX: Left chest and luq pain; Cardiac HX; Additional info: Per PT: Heart attack in 2008 TECHNIQUE: Imaging protocol: Axial computed tomography images of the chest with intravenous contrast. Coronal and sagittal reformatted images were created and reviewed. COMPARISON: CT CHEST FOR PE, ABD PELVIS W 12/09/2017 1:02 AM FINDINGS: Thyroid: 1.2 cm right thyroid nodule. Lungs: Unremarkable. No consolidation. No masses. Pleural space: Unremarkable. No pneumothorax. No pleural effusion. Heart: Unremarkable. No cardiomegaly. No pericardial effusion. Aorta: Aortic and coronary atherosclerosis. Lymph nodes: Unremarkable. No enlarged lymph nodes. Bones/joints: Old left rib fractures. Soft tissues: Unremarkable. IMPRESSION: No acute finding. EXAM: CT Abdomen and Pelvis With Contrast EXAM DATE/TIME: 01/28/2019 8:09 PM CLINICAL HISTORY: 58 years old, male; Abdominal pain; Localized; rib fractures. upper quadrant (luq); Left-sided chest pain; Patient HX: Left chest and luq pain; Cardiac HX; Additional info: Per PT: Heart attack in 2009 TECHNIQUE: Imaging protocol: Axial computed tomography images of the abdomen and pelvis with intravenous contrast. Coronal and sagittal reformatted images were created and reviewed. COMPARISON: CT CHEST FOR PE, ABD PELVIS W 12/09/2017 1:02 AM FINDINGS: Liver: 8mm nonspecific hypodensity in the right hepatic lobe. Gallbladder and bile ducts: Normal. No calcified stones. No ductal dilation. Pancreas: Normal. No ductal dilation. Spleen: Normal. No splenomegaly. Adrenals: Normal. No mass. Kidneys and ureters: Subcentimeter bilateral renal cysts. Stomach and bowel: Normal. No obstruction. No mucosal thickening. Appendix: No evidence of appendicitis. Intraperitoneal space: Normal. No free air. No significant fluid collection. Vasculature: Atherosclerosis. High-grade stenosis in the origins of the common iliac arteries due to atherosclerosis. Lymph nodes: Normal. No enlarged lymph nodes. Bladder: Unremarkable as visualized. Reproductive: Unremarkable as visualized. Bones/joints: No acute fracture. No dislocation. Soft tissues: Anterior abdominal wall mesh in place. IMPRESSION: 1. No acute finding. 2. High-grade stenosis in the origins of the common iliac arteries due to atherosclerosis. Dictated and Authenticated by: Idalia Irvin MD. Labs : 01/28/19 19:31 01/28/19 19:31 Laboratory Results - last 24 hr 01/28/19 01/28/19 01/28/19 19:28 19:28 19:31 WBC Cancelled RBC Cancelled Hgb Cancelled Hct Cancelled MCV Cancelled MCH Cancelled MCHC Cancelled RDW Cancelled Plt Count Cancelled MPV Cancelled Immature Gran % Neutrophils % Lymphocytes % Monocytes % Eosinophils % Basophils % Absolute Neutrophils Absolute Lymphocytes Absolute Monocytes Absolute Eosinophils Absolute Basophils PT INR APTT Sodium Cancelled Potassium Cancelled Chloride Cancelled Carbon Dioxide Cancelled Anion Gap Cancelled BUN Cancelled Creatinine Cancelled Estimated GFR/1.73 m2 Cancelled Glucose Cancelled Calcium Cancelled Magnesium 1.9 Total Bilirubin Cancelled 0.4 Conjugated Bilirubin 0.12 AST Cancelled 21 ALT Cancelled 44 Alkaline Phosphatase Cancelled 81 Troponin I Cancelled NT-Pro-B Natriuret Pep Total Protein Cancelled 8.0 Albumin Cancelled 4.2 01/28/19 01/28/19 01/28/19 19:31 19:31 19:31 WBC 8.63 RBC 4.68 Hgb 14.3 Hct 40.1 MCV 85.7 MCH 30.6 MCHC 35.7 RDW 13.1 Plt Count 200 MPV 9.6 Immature Gran % 0.2 Neutrophils % 72.5 Lymphocytes % 19.2 Monocytes % 7.4 Eosinophils % 0.2 Basophils % 0.5 Absolute Neutrophils 6.25 Absolute Lymphocytes 1.66 Absolute Monocytes 0.64 Absolute Eosinophils 0.02 Absolute Basophils 0.04 PT 9.9 INR 1.0 APTT 21.9 Sodium 138 Potassium 2.9 L* Chloride 100 Carbon Dioxide 23.6 Anion Gap 14.4 H BUN 18 Creatinine 1.21 Estimated GFR/1.73 m2 >= 60.00 Glucose 115 H Calcium 9.4 Magnesium Total Bilirubin 0.4 Conjugated Bilirubin AST 22 ALT 46 Alkaline Phosphatase 80 Troponin I < 0.05 NT-Pro-B Natriuret Pep 114 Total Protein 8.0 Albumin 4.1 Last Vital Signs Temp 37.1 C 01/28/19 19:23 Pulse 79 01/28/19 20:35 Resp 13 01/28/19 21:00 BP 130/73 01/28/19 20:35 Pulse Ox 95 01/28/19 21:00
[2019-01-28] MEDS: Acetaminophen 500 MG TAB 1000 MG PO (22:55)
[2019-01-28] MEDS: POTASSIUM CHLORIDE/0.9% NACL 1,000 ML 125 MEQ IV (23:23)
[2019-01-29] VITALS (16 sets, daily range): BP systolic 109–178; BP diastolic 56–88; PULSE 38–84; RESP 16–19; TEMP 36–36.9; O2SAT 94–99
[2019-01-29] MEDS: Metoprolol 50 MG TAB PO ×2 (00:08→20:20)
[2019-01-29] MEDS: amLODIPine 10 MG TAB PO ×2 (00:08→21:46)
[2019-01-29] MEDS: Enoxaparin 40 MG/0.4 ML SYR SC ×2 (00:08→23:58)
[2019-01-29 01:48] LABS: Troponin I < 0.05 ng/mL (0.00-0.06)
[2019-01-29] MEDS: Normal Saline Flush 10 ML SYR IVP ×5 (03:10→21:45)
[2019-01-29] MEDS: MAGNESIUM SULFATE 1 GM/100 ML BAG IVPB (03:24)
[2019-01-29] MEDS: Acetaminophen 500 MG TAB 1000 MG PO ×3 (06:27→20:28)
[2019-01-29] MEDS: POTASSIUM CHLORIDE/0.9% NACL 1,000 ML 125 MEQ IV (07:14)
[2019-01-29 07:40] LABS: HCT 39.7 % (40.0-50.0); Mean Corp. HGB Concentration 35.3 g/dL (32.0-36.0); Mean Corpuscular Hemoglobin 30.9 pg (27.0-33.0); Mean Corpuscular Volume 87.6 fL (80-95); Mean Platelet Volume 9.9 fL (8.0-11.0); Platelet Count 187 x1000/uL (130-400); RBC 4.53 m/cumm (4.50-6.00); RBC Distribution Width 13.2 % (11.8-14.1)
[2019-01-29 07:58] LABS: ALT 42 U/L (12-78); AST 22 U/L (15-37); Albumin 3.4 g/dL (3.4-5.0); Alkaline Phosphatase 69 U/L (46-116); Anion Gap 8.9 mmol/L (3-11); BUN 12 mg/dL (7-18); Bilirubin, Total 0.4 mg/dL (0.2-1.0); CO2 28.1 mmol/L (21.0-32.0); CREATININE 0.92 mg/dL (0.70-1.30); Calcium 8.1 mg/dL (8.5-10.1); Chloride 102 mmol/L (98-107); Glucose 89 mg/dL (70-100); Potassium 3.2 mmol/L (3.5-5.1); Sodium 139 mmol/L (136-145); Total Protein 6.8 g/dL (6.4-8.2)
[2019-01-29 08:30] LABS: TSH (W/Ref FT4) 2.05 uIU/mL (0.36-3.74)
[2019-01-29 08:31] LABS: Troponin I < 0.05 ng/mL (0.00-0.06)
[2019-01-29 08:32] LABS: Troponin I < 0.05 ng/mL (0.00-0.06)
[2019-01-29 08:45] LABS: Calculated LDL 72 mg/dL; Cholesterol 155 mg/dL (50-200); HDL Cholesterol 61 mg/dL (40-60); Triglyceride 110 mg/dL (30-150)
[2019-01-29] MEDS: Magnesium Oxide 400 MG TAB PO ×2 (09:16→20:19)
[2019-01-29] MEDS: Potassium Chloride 20 MEQ TABCR PO (09:16)
[2019-01-29] MEDS: hydroCHLOROthiazide 25 MG TAB PO (09:16)
[2019-01-29] MEDS: Aspirin E.C. 81 MG TABEC PO (09:17)
--- NOTE | 2019-01-29 09:49 | PHARADMIT ---
Admission Pharmacy Clinical Review ATYPICAL CHEST PAIN, CAD, HYPOKALEMIA, HTN Code Status Full Code Current Weight 99 kg Renally Cleared and Narrow Therapeutic Index Meds CRCL ~81ML/MIN QTc Value / Action Taken 474 BP Control, Fever 112/62 AFEBRILE Electrolytes reviewed K 3.2, DVT Prophylaxis ENOXAPARIN Opiate Usage / Scheduled Bowel Regimen Ordered PRN/PRN Plt/SCr for Heparin / Enoxaparin 187/0.92 INR for Warfarin NA H/H stable, WBC/Bands 14.0/39.7 WBC 5.90 Antibiotic appropriateness NA Cultures and Sensitivities NA Surgical ABX d/c within 24 hr NA DM control / Insulin Dosing NA Heart Failure (Check EF%) (RESHMA's, B-Block, Diuretics) NA IV to PO Switch IVF AND PAIN MED IV Home Meds Reviewed Home Meds Not Ordered metoprolol succinate 100 mg PO DAILY 90 Days #90 tab-cap (USING TARTRATE FORM WHILE INPT)
--- NOTE | 2019-01-29 09:51 | PDOC.CMIN ---
- If Service Date Differs Date of service: 01/29/19 Time of Service: 09:51 Care Management Initial Assess REASON FOR HOSPITALIZATION:: Chest Pain PAST MEDICAL HISTORY/PAST SURGICAL HISTORY:: Medical History: CAD S/P percutaneous coronary angioplasty (Acute). HTN (hypertension) with goal to be determined (Acute). Hypokalemia (Acute) PREVIOUS FUNCTIONAL STATUS/SOCIAL/FAMILY SUPPORTS:: Mati lives alone in a camp in [place], [place] He spends his christine in [place] and valentine in [place]. He has been disabled since 2005 and his sole income is the $761/month he receives from disability. He states he is unable to afford to pay for some of his medications and cant get to MD appointments because he does not have a car and [facility] won't transport. Mati is and has no family. He does have a few friends that he can call on from time to time, but not close enough to rely on regularly. Thaddeus has bee CURRENT FUNCTIONAL STATUS:: Mati was sitting up in the chair when CM came to see him. He was agreeable to conversing with CM but was wary in his responses at first. When he began to talk about the challenges he faces financially he became much more open and talkative. CM shared that a referral will be made to [facility] [employer] first thing tomorrow morning to see if any assistance is available. ADVANCE DIRECTIVES:: None on file at [facility] Has patient been provided with information about the portal?: No Did the patient sign up for the portal?: No (no computer access) CODE STATUS:: Full Code INSURANCE COVERAGE / FINANCIAL ISSUES:: Medicare CURRENT HOME/COMMUNITY SERVICES/EQUIPMENT:: none currently. He used to get food stamps. PRIMARY CARE PHYSICIAN:: Alex Daniels MD POTENTIAL DISCHARGE NEEDS:: Financial assistance and possible service suppports from [employer] [facility] as well as follow up with PCP and discharge plan of care. PATIENT/FAMILY EDUCATION NEEDS:: Discharge plan, limitations, follow up, Ask Me Three ANTICIPATED BARRIERS TO DISCHARGE:: none identified TRANSPORTATION:: via private vehicle with family when ready PLAN:: Mati will continue to undergo testing to determine the cause of his chest pain. He will be discharged home and may need some community supports. CM will continue to support patient and identified discharge needs.
[2019-01-29] MEDS: Losartan 25 MG TAB 50 MG PO (10:53)
[2019-01-29] MEDS: Isosorbide Mononitrate 30 MG TABCR PO (10:53)
[2019-01-29] MEDS: Potassium Chloride 20 MEQ TABCR 40 MEQ PO (11:26)
--- NOTE | 2019-01-29 13:04 | W.PM.PROGNOT ---
Date of Service Date of service: 01/29/19 Time of Service: 13:04 Assessment and Plan (1) Chest pain, atypical: Current visit: Yes Status: Acute No evidence of ACS. At this time, I am not convinced that it is only cardiac in origin, as there appears to be a pleuritic component (exacerbation by cough, new productive cough). However, certainly, with h/o CAD as well as occurence of Vtach overnight, ischemic workup should be completed as intpatient. Patient is scheduled for a nuclear stress test tomorrow as well as echo. Will back off of beta blcokers (now has 1st degree AV block on CXR, HR dipping down to 30's). Continue to monitor on telemetry. Replete lytes. Meanwhile, will also obtain procalcitonin to r/o bacterial bronchitis component. Obtain sputum culture. Will discuss with radiology re possibilty of PE based on yesterday's CT. LDL and HDL are at goal. Continue baby aspirin. (2) CAD S/P percutaneous coronary angioplasty: Current visit: Yes Status: Chronic As above (3) HTN (hypertension) with goal to be determined: Current visit: Yes Status: Chronic Decrease metoprolol to 50 mg PO BID with holding parameters due to bradycardia. (4) Hypokalemia: Current visit: Yes Status: Acute Replete. Continue to monitor on Tele. (5) PAD (peripheral artery disease): Current visit: Yes Status: Chronic Will need outpatient follow up. At this time, B common iliac artery stenosis does not appear critical. (6) DVT prophylaxis: Current visit: Yes Status: Acute lovenox SC (7) Discharge planning issues: Current visit: Yes Status: Acute Full code Possible discharge home tomorrow if ischemic workup is negative. Subjective Interval history since last seen: Mr Mosher states he continues to have chest heaviness on the left side of his chest. He reports that it feels worse when he coughs. When asked about his cough, he stated that it's been going on for a few days, is productive of black sputum, and that he had a subjective fever at home a few days ago, at about the same time as the beginning of the cough. He denies dizziness, nausea today, but had nausea yesterday. He did have an episode of chest pain last night since arrival to the medical surgical floor. He also had an episode of 18 beats of Vtach - it is not clear if the two were correlated. Finally, he reports that his legs hurt any time he walks - specifically in bilateral inner thighs. This has been going on for at least a year. When we discussed findings of PAD on CT abdomen/pelvis, he told me he was previously referred to vascular surgery, but didn't go. I explained to him that he must follow up. Exam Narrative Exam Narrative: General: middle-aged male, appears somewhat older than his stated age, A&Ox3, mildly anxious, sitting up in a chair HEENT: EOMI, MMM Heart: RRR, no m/r/g Lungs: CTAB GI: abdomen is soft, nontender, nondistended Extremities: no e/c/c BLE's, I cannot palpate a pedal pulse in R foot, but can in LLE. Both feet are warm. Objective Objective Clinical Data: Abnormal lab results 01/28/19 01/29/19 01/29/19 Range/Units 19:31 06:37 06:37 Hct 39.7 L (40.0-50.0) % Potassium 2.9 L* 3.2 L (3.5-5.1) mmol/L Anion Gap 14.4 H (3-11) mmol/L Glucose 115 H (70-100) mg/dL Calcium 8.1 L (8.5-10.1) mg/dL HDL Cholesterol 61 H (40-60) mg/dL Vital Signs Temperature 36.9 C 01/29/19 11:30 Temperature Source Tympanic 01/29/19 11:30 Pulse 55 L 01/29/19 11:30 Pulse Rhythm Regular 01/28/19 23:24 Pulse 84 01/28/19 21:00 Respiratory Rate 18 01/29/19 11:30 Respiratory Effort 01/28/19 23:24 Respiratory Depth Normal 01/28/19 23:24 Respiratory Pattern Normal 01/28/19 23:24 Blood Pressure 131/78 01/29/19 11:30 Blood Pressure Mean 76 01/28/19 20:35 Blood Pressure Position Sitting 01/28/19 19:23 Pulse Oximetry 98 01/29/19 11:30 Oxygen Delivery Method Room Air 01/29/19 11:30 Oxygen Flow Rate 0 01/29/19 11:30 Pain Level 4 01/29/19 11:30 Intake & Output 01/28/19 01/29/19 01/29/19 23:59 11:59 23:59 Intake Total 100 / 100 1081.25 / 2261.25 1180 / 2261.25 Output Total 1700 / 1700 Balance 100 / 100 -618.75 / 561.25 1180 / 561.25 Weight 99 kg Intake: IV 100 / 100 1081.25 / 1781.25 700 / 1781.25 Oral 480 / 480 Output: Urine 1700 / 1700 Other: Urine Color Yellow Urine Appearance Clear Urine Odor None Voiding Methods Urinal Laboratory Results WBC 5.90 k/cumm (4.4-10.8) D 01/29/19 06:37 RBC 4.53 m/cumm (4.50-6.00) 01/29/19 06:37 Hgb 14.0 g/dL (13.5-17.5) 01/29/19 06:37 Hct 39.7 % (40.0-50.0) L 01/29/19 06:37 MCV 87.6 fL (80-95) 01/29/19 06:37 MCH 30.9 pg (27.0-33.0) 01/29/19 06:37 MCHC 35.3 g/dL (32.0-36.0) 01/29/19 06:37 RDW 13.2 % (11.8-14.1) 01/29/19 06:37 Plt Count 187 x1000/uL (130-400) 01/29/19 06:37 MPV 9.9 fL (8.0-11.0) 01/29/19 06:37 Immature Gran % 0.2 01/28/19 19:31 72.5 01/28/19 19:31 19.2 01/28/19 19:31 7.4 01/28/19 19:31 0.2 01/28/19 19:31 0.5 01/28/19 19:31 Absolute Neutrophils 6.25 k/cumm (1.2-6.7) 01/28/19 19:31 Absolute Lymphocytes 1.66 k/cumm (1.2-3.4) 01/28/19 19:31 Absolute Monocytes 0.64 k/cumm (0.11-0.7) 01/28/19 19:31 Absolute Eosinophils 0.02 k/cumm (0.0-0.7) 01/28/19 19:31 Absolute Basophils 0.04 k/cumm (0.0-0.2) 01/28/19 19:31 PT 9.9 sec (9.3-11.0) 01/28/19 19:31 INR 1.0 (0.9-1.1) 01/28/19 19:31 APTT 21.9 sec (21.0-31.4) 01/28/19 19:31 Sodium 139 mmol/L (136-145) 01/29/19 06:37 Potassium 3.2 mmol/L (3.5-5.1) L 01/29/19 06:37 Chloride 102 mmol/L (98-107) 01/29/19 06:37 Carbon Dioxide 28.1 mmol/L (21.0-32.0) 01/29/19 06:37 8.9 mmol/L (3-11) 01/29/19 06:37 BUN 12 mg/dL (7-18) D 01/29/19 06:37 0.92 mg/dL (0.70-1.30) 01/29/19 06:37 >= 60.00 (mL/min/1.73m2) 01/29/19 06:37 Glucose 89 mg/dL (70-100) 01/29/19 06:37 Calcium 8.1 mg/dL (8.5-10.1) L 01/29/19 06:37 Magnesium 1.9 mg/dL (1.8-2.4) 01/28/19 19:31 0.4 mg/dL (0.2-1.0) 01/29/19 06:37 0.12 mg/dL (0.00-0.20) 01/28/19 19:31 AST 22 U/L (15-37) 01/29/19 06:37 ALT 42 U/L (12-78) 01/29/19 06:37 69 U/L (46-116) 01/29/19 06:37 < 0.05 ng/mL (0.00-0.06) 01/29/19 06:37 < 0.05 ng/mL (0.00-0.06) 01/29/19 06:37 NT-Pro-B Natriuret Pep 114 pg/mL (-299) 01/28/19 19:31 6.8 g/dL (6.4-8.2) 01/29/19 06:37 3.4 g/dL (3.4-5.0) 01/29/19 06:37 Triglycerides 110 mg/dL (30-150) 01/29/19 06:37 155 mg/dL (50-200) 01/29/19 06:37 LDL Cholesterol, Calc 72 mg/dL 01/29/19 06:37 61 mg/dL (40-60) H 01/29/19 06:37 TSH 2.05 uIU/mL (0.36-3.74) 01/29/19 06:37
[2019-01-29 14:40] LABS: Procalcitonin < 0.1 ng/mL
[2019-01-29] MEDS: Atorvastatin 40 MG TAB 80 MG PO (20:19)
[2019-01-30] VITALS (9 sets, daily range): BP systolic 114–131; BP diastolic 67–75; PULSE 45–87; RESP 17–20; TEMP 35.7–36.6; O2SAT 96–99
[2019-01-30] MEDS: LORazepam 1 MG TAB PO (00:17)
[2019-01-30] MEDS: Acetaminophen 500 MG TAB 1000 MG PO ×3 (00:18→23:00)
[2019-01-30 07:40] LABS: Anion Gap 10.9 mmol/L (3-11); BUN 16 mg/dL (7-18); CO2 26.1 mmol/L (21.0-32.0); CREATININE 0.95 mg/dL (0.70-1.30); Calcium 8.5 mg/dL (8.5-10.1); Chloride 103 mmol/L (98-107); Glucose 88 mg/dL (70-100); Magnesium 2.1 mg/dL (1.8-2.4); Potassium 3.3 mmol/L (3.5-5.1); Sodium 140 mmol/L (136-145)
--- NOTE | 2019-01-30 07:45 | MERGE_ITS ---
*[facility]* *[facility]* [address] [place] [address] Date of study: 01/30/2019 Transthoracic Echocardiography M-mode, complete 2D, complete spectral Doppler, and color Doppler *STUDY CONCLUSIONS* Summary: 1. Left ventricle: The cavity size was normal. Systolic function was moderately reduced. The estimated ejection fraction was 35-40%. Diffuse hypokinesis. Severe hypokinesis of the inferior myocardium. The study is not technically sufficient to allow evaluation of LV diastolic function. 2. Mitral valve: There was moderate regurgitation. 3. Atrial septum: No defect or patent foramen ovale was identified. 4. Pulmonary arteries: Pulmonary systolic pressure was in the range of 25mm Hg to 35mm Hg. 5. Inferior vena cava: The vessel was patent and normal in size. The respirophasic diameter changes were blunted, RAP est 5-10 mmHg. *PATIENT PRESENTATION* Height: 170.2cm (67in ) S/D Pressure: 114 / 67 Weight: 98.9kg (217.5lb ) BSA: 2.2m^2 Test start time: 07:50 AM. Test stop time: 08:45 AM. 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 This study was interpreted by [facility]. Pertinent images and digital data are archived for permanent storage and are available for subsequent review. No prior study was available for comparison. Study status: Routine. Transthoracic echocardiography. M-mode, complete 2D, complete spectral Doppler, and color Doppler. A Transthoracic Echocardiogram was performed. Scanning was performed from the parasternal, apical, subcostal, and suprasternal notch acoustic windows. Images were obtained using an [id number] cardiac ultrasound machine. Image quality was adequate. Study completion: The patient tolerated the procedure well. History: PMH: Chest pain, non sustained Vtach. *CARDIAC ANATOMY* Left ventricle: The cavity size was normal. Systolic function was moderately reduced. The estimated ejection fraction was 35-40%. Diffuse hypokinesis. Regional wall motion abnormalities: Severe hypokinesis of the inferior myocardium. The study is not technically sufficient to allow evaluation of LV diastolic function. Aortic valve: Trileaflet; mildly thickened, mildly calcified leaflets. Doppler: There was no stenosis. There was no significant regurgitation. VTI ratio of LVOT to aortic valve: 0.87. Valve area (VTI): 3.1cm^2. Indexed valve area (VTI): 1.4cm^2/m^2. Peak velocity ratio of LVOT to aortic valve: 0.8. Valve area (Vmax): 2.9cm^2. Indexed valve area (Vmax): 1.3cm^2/m^2. Mean velocity ratio of LVOT to aortic valve: 0.72. Valve area (Vmean): 2.6cm^2. Indexed valve area (Vmean): 1.2cm^2/m^2. Mean gradient (S): 3.5mm Hg. Peak gradient (S): 5.8mm Hg. Aorta: Aortic root: The aortic root was normal in size. Ascending aorta: The ascending aorta was mildly dilated. Mitral valve: Doppler: There was no evidence for stenosis. There was moderate regurgitation. Valve area by pressure half-time: 3.8cm^2. Indexed valve area by pressure half-time: 1.7cm^2/m^2. Peak gradient (D): 3.1mm Hg. Left atrium: The atrium was normal in size. Atrial septum: No defect or patent foramen ovale was identified. Pulmonic valve: Doppler: There was no evidence for stenosis. There was no significant regurgitation. Peak gradient (S): 2.7mm Hg. Tricuspid valve: Doppler: There was mild regurgitation. Pulmonary artery: Poorly visualized. Pulmonary systolic pressure was in the range of 25mm Hg to 35mm Hg. Right atrium: The atrium was normal in size. Pericardium: There was no pericardial effusion. Systemic veins: Inferior vena cava: Well visualized. The vessel was patent and normal in size. The respirophasic diameter changes were blunted, RAP est 5-10 mmHg. Baseline ECG: Bradycardia. Measurements Left ventricle Value Reference LV ID, ED, PLAX 5.7 cm 3.5 - 6.0 LV ID, ES, PLAX (H) 5.0 cm 2.1 - 4.0 LV end-diastolic volume, 1-p A2C 187 ml LV ejection fraction, 1-p A2C 26 % LV end-diastolic volume, 1-p A4C 188 ml LV ejection fraction, 1-p A4C 34 % LV e', lateral 0.091 m/sec LV E/e', lateral 10 LV e', medial 0.064 m/sec LV E/e', medial 14 LV e', average 0.077 m/sec LV E/e', average 11 LVOT Value Reference LVOT ID, A-P 2.1 cm LVOT area 3.6 cm^2 LVOT peak velocity, S 0.96 m/sec LVOT mean velocity, S 0.64 m/sec LVOT VTI, S 21.6 cm LVOT peak gradient, S 3.7 mm Hg LVOT mean gradient, S 1.9 mm Hg Stroke volume (SV), LVOT DP 78 ml Stroke index (SV/bsa), LVOT DP 36 ml/m^2 Aortic valve Value Reference Aortic valve peak velocity, S 1.2 m/sec Aortic valve mean velocity, S 0.9 m/sec Aortic valve VTI, S 25.0 cm Aortic mean gradient, S 3.5 mm Hg Aortic peak gradient, S 5.8 mm Hg VTI ratio, LVOT/AV 0.87 Aortic valve area, VTI 3.1 cm^2 Velocity ratio, peak, LVOT/AV 0.8 Aortic valve area, peak velocity 2.9 cm^2 Velocity ratio, mean, LVOT/AV 0.72 Aortic valve area, mean velocity 2.6 cm^2 Aortic valve area/bsa, mean velocity 1.2 cm^2/m^2 Aorta Value Reference Aortic root ID, ED 3.5 cm Ascending aorta ID, A-P, S 3.5 cm Left atrium Value Reference LA ID, A-P, ES 4.5 cm LA ID/bsa, A-P 2.0 cm/m^2 <=2.2 LA volume/bsa, ES, 1-p A4C 31 ml/m^2 LA volume, ES, 2-p 64 ml LA volume/bsa, ES, 2-p 29 ml/m^2 LA/aortic root ratio 1.26 Mitral valve Value Reference Mitral E-wave peak velocity 0.88 m/sec Mitral A-wave peak velocity 0.49 m/sec Mitral deceleration time 199 ms 150 - 230 Mitral pressure half-time 58 ms Mitral peak gradient, D 3.1 mm Hg Mitral E/A ratio, peak 1.82 Mitral valve area, PHT, DP 3.8 cm^2 Mitral peak LV-LA gradient, S 127.2 mm Hg Mitral maximal regurg velocity, PISA 5.64 m/sec Mitral regurg VTI, PISA 238.3 cm Pulmonary veins Value Reference Pulmonary vein peak velocity, S 0.42 m/sec Pulmonary vein peak velocity, D 0.53 m/sec Pulmonary vein velocity ratio, peak, 0.8 S/D Pulmonary vein A-wave reversal peak 0.32 m/sec velocity Pulmonary vein A-wave reversal duration 146 ms Tricuspid valve Value Reference Tricuspid regurg peak velocity 2.5 m/sec Tricuspid peak RV-RA gradient 25.2 mm Hg Right atrium Value Reference RA area, ES, A4C 18.1 cm^2 8.3 - 19.5 Pulmonic valve Value Reference Pulmonic peak gradient, S 2.7 mm Hg Legend: (L) and (H) eliud values outside specified reference range. I have personally reviewed the images and have reviewed and edited the reported findings. Electronically signed by Sanjay Stark MD 01/30/2019 10:24
--- NOTE | 2019-01-30 08:45 | PDOC.CMPRO ---
- If Service Date Differs Date of service: 01/30/19 Time of Service: 08:45 Care Management Progress Note S/O:Mati is alert and engaged. His friends are in the room Tu [phone], Cuco [phone] Tu would like to be contacted when he is discharged patient agrees states Tu and Cuco are his support people. CM did review Code 44 paperwork and completed with the patient as well as explained benefits. Mati is now appropriately an inpatient after 48 hours and [facility] A:Mati 58 year old male admitted with atypical chest pain with a history of CAD. P:Mati will be transferred to [facility] awaiting a bed availability.
--- NOTE | 2019-01-30 12:25 | DI.CT_ITS ---
SYMPTOM/DIAGNOSIS: LT SIDED CHEST PAIN CT BRAIN: Noncontrast examination. The ventricles and sulci are consistent with the patient's age. No acute intracranial hemorrhage, midline shift or mass effect is identified. The ventricles are intact. The basilar cisterns are patient. The visualized paranasal sinuses are clear as are the mastoid air cells. The calvarium is intact. IMPRESSION: No acute intracranial process.
[2019-01-30] MEDS: Losartan 25 MG TAB 50 MG PO (12:45)
[2019-01-30] MEDS: hydroCHLOROthiazide 25 MG TAB PO (12:45)
[2019-01-30] MEDS: Isosorbide Mononitrate 30 MG TABCR PO (12:46)
[2019-01-30] MEDS: Aspirin E.C. 81 MG TABEC PO (12:46)
[2019-01-30] MEDS: Magnesium Oxide 400 MG TAB PO ×2 (12:46→20:38)
[2019-01-30] MEDS: POTASSIUM CHLORIDE 20 MEQ/100 ML BAG 50 MEQ IVPB ×2 (13:00→16:40)
--- NOTE | 2019-01-30 13:13 | CCONE_ITS ---
Assessment & Plan Plan Detail Comments: Date: January 30, 2019 Patient: Mati Mosher 58-year-old man. Problems: 1. Coronary artery disease. 2009: IMI. RCA stent. Symptoms at time of stent placement included chest discomfort, pressure and sharp discomfort described. 2. VT. 3 runs noted this admission. 18 beat run 11:57 PM January 28. 3 beat run over 300 hours January 28 (different morphology). 10 beat run 00 32 hours January 09 (similar morphology to triplet). 2. Peripheral vascular disease. Claudication bilaterally. Describes claudication symptoms when ambulating. 3. Tobacco abuse: Ongoing. Down to half pack per day from his usual 1 pack/day. History of present illness: January 30, 2019. Patient admitted January 28, 2019. Presented with chest discomfort associate with nausea and vomiting, shortness of breath, diaphoresis. Had run out of long-acting nitrate, not taking it x7 to 10 days. History of medical noncompliance. Took 4?5 sublingual nitroglycerin at home, no change with pain. Unclear if these nitro glycerin tablets were active. In ED: Blood pressure 179/79, heart rate 100. T wave inversions lateral leads. Minimal response to nitrates in the ER. CT chest and abdomen pelvis: No acute finding. Bilateral high-grade stenosis of common iliac arteries. In conversation today, January 30, 2019, patient describes having frequent episodes of chest discomfort. Intermittent pressure which may be worse with inspiration (worse exhaling). Nonpalpable. Described as a needlelike sensation also. No radiation. Occurs for minutes to hours. Happens most days. Has been ongoing since initial stent in 2008. He is quite limited in functionality, short of breath ambulating short distances on level surfaces, he gets claudication predictably at about 50 feet (short of breath by then also). He spends his christine in [place] in a cabin in [facility] ([facility], no insulation), goes down to [place] in March and spends the winter there. He lives alone and independently. He is fairly sedentary, limited by breathing and claudication as above. He gets short of breath if he sweeps the cabin. His own cooking cleaning ADLs etc. Has to take his time. Describes chest discomfort as above. The only reason he sought medical attention 2 days ago was because he was bothered by nausea and vomiting (not a frequent problem for him). He describes a 20 pound weight loss over the last 6 months or so. His appetite is good. Describes shortness of breath as above. Sleeps on one pillow. Denies PND orthopnea. No edema. Weight loss as above. He does not know if he snores. He does describe daytime fatigue and headaches. He has palpitations occasionally, these are flutters that may last 60 to 90 seconds, when they occur I start to shake. Describes a very concerning episode in November 2018 shortly after he had come back to [place]. It was dusk, he was walking to his 4 min outside, and the next thing he remembered he was awake on the ground, it was completely dark, he was complaining of terrible chest discomfort. He feels he was probably out for 1 to 1.5 hours. Eventually sought medical attention, describes having rib fractures. He does not remember falling or striking the ground. Apparently unprotected fall. He has never had an episode like this prior, no episodes since. No history of fainting. No history of syncope otherwise. ER evaluation (November 14, 2018) does describe patient being evaluated for rib fracture. History includes tripping over a rock and fell. Potassium was low 2.8. Negative troponin. Denies bleeding problems. No hematochezia melena hematuria. No other problems with bowel or bladder. He is quite noncompliant with medications due to cost issues. He has been fairly faithful about taking aspirin daily, he cuts an adult strength aspirin in half. DATA: Cardiac risk factors: Negative family history. Positive cholesterol. Positive tobacco, 30+-pack-year history, ongoing. Negative diabetes. Positive hypertension. Past medical history: As above. Hypokalemia. Abdominal surgery 2011. Question diverticular disease. Had mesh placed. Mesh needed to be replaced in 2014. Social history: Activity profile as above. Ongoing tobacco abuse. Rare alcohol. Review of systems: A 10 point review of systems was performed, pertinent positives as above, all others negative. Allergies: NKDA Contrast allergy: None Echo: January 30, 2019. LVEF 30-35%. Severe inferior hypokinesis. Right ventricle normal. Aortic valve trileaflet, sclerotic. 2+ MR. No flail/prolapse appreciated. 1+ TR. Pulmonary pressure 25-35 mmHg. Diastolic indices are indeterminate. Atrial size normal. IVC normal size, minimal collapse, RAP estimated 5-10 mmHg. No effusion. Normal aortic root, mild ascending aorta dilatation. June 11, 2017. [facility]. LVEF 47%. LV mildly dilated. Interventricular septum hypokinetic. Inferior akinetic. Right ventricle normal. Pulmonary pressure 34 mmHg. Severe left atrial enlargement, right atrium moderately dilated. Trileaflet aortic valve. Sclerotic, no stenosis. 2+ MR. Trace TR. Aorta normal. Stress test: March 20, 2011. [facility]. Dobutamine stress echo. Indeterminate ischemia, due to sub-target heart rate despite dobutamine (unclear if patient took beta-rolando, unreliable historian). Negative ischemia at sub- back's heart rate. LVEF at rest: 50% with inferior akinesis. LHC: June 11, 2017. [facility]. Left main: Mild disease. LAD: Mild disease. Proximal 30%. Circumflex: Very small. RCA: Mild disease. 30% mid. Large ramus, mild disease. Patent renal arteries bilaterally. Severe calcific disease left common femoral artery. Moderate severe calcific disease right common femoral artery. 50 mm gradient on pullback from distal aorta to right [employer]. Holter: Event monitor: EKG: January 29, 2019. Sinus rhythm 54 bpm. Normal axis. Nonspecific QRS widening. First-degree AV block, MN interval 224 ms. No acute change. T wave inversion in lead I. January 28, 2019. Sinus rhythm 99 bpm. Normal axis. Q waves lead III. Nonspecific ST-T wave changes. Nonspecific QRS widening. November 14, 2018. Sinus rhythm 88 bpm. Normal axis. Q waves leads III, F. Nonspecific QRS widening. December 09, 2017. Sinus rhythm 86 bpm. Q waves leads III, F. Radiology: Chest CT abdomen pelvis December 09, 2017. 1.2 cm right thyroid nodule. Aortic and coronary atherosclerosis. High-grade stenosis origins common iliacs. Anterior abdominal wall mesh. Laboratory: January 30, 2019. Calcium normal. BUN/creatinine 16/0.95, GFR greater than 60. Lites normal except potassium 3.3. Magnesium normal. January 29, 2019. LDL 72. Triglycerides 114. TSH normal 2.05. January 28, 2019. CBC normal. Potassium 2.9, lites normal otherwise. BUN/creatinine 18/1.2, GFR greater than 60. AST/ALT normal. ProBNP 114. Troponin: January 28: Less than 0.05?4. Medications: Current: Tylenol, amlodipine 10 mg daily, aspirin 81 mg daily, atorvastatin 80 mg daily, HCTZ 25 mg daily, isosorbide mononitrate 30 mg daily, losartan 50 mg daily, metoprolol succinate 100 mg daily, melatonin, ondansetron, potassium Home: Aspirin 81 mg daily, amlodipine 10 mg daily, atorvastatin 80 mg daily, HCTZ 25 mg daily, isosorbide mononitrate 30 mg every morning, metoprolol succinate 100 mg daily, losartan 50 mg daily, Tylenol, melatonin, ondansetron, potassium Physical Exam: Heart rate: 87 Blood pressure: 122/68 Oxygen saturation: 99% room air Alert and oriented. HEENT: Sclera anicteric, oral mucosa moist, dentition intact. I could not detect an elevated JVP sitting. Carotids 2+ bilaterally. No bruit. No thyromegaly lymphadenopathy. Heart: Regular rate and rhythm, normal S1-S2, no murmur, gallop, or rub. Lungs: Clear to auscultation bilaterally. Spine: No sacral edema. Abdomen: Soft, bowel sounds present. No organomegaly or mass. No bruit. Extremities: No edema. 2+radial pulses bilaterally, I could not detect DP/PT bilaterally. No cyanosis or clubbing. Assessment: 1. Chest pain. Patient with history coronary disease. Stent?RCA 2008. It sounds like he has had ongoing and recurrent chest discomfort since this procedure. Repeat [facility] 2017: No occlusive disease, no intervention. He would not have sought medical attention because of his usual chest discomfort except that it was associated with nausea and vomiting this admission, January 2019. He has ruled out for myocardial infarction. EKG is not acute. He has had recurrent discomfort since admission. I am not convinced he has acute coronary abnormalities. 2. VT/syncope. Since admission he has had 2 bursts of nonsustained VT (polymorphic). Echo today, January 30, 2019, suggests a decrement in LV systolic function from study 2017. He has similar inferior wall motion abnormality but global function I think is reduced to 35-40% range. He has a concerning history of presumed syncope in November 2018. This event that was abrupt, he cannot remember falling (apparently a fall significant enough to fracture ribs). No history syncope before or since. With worsening cardiomyopathy, history coronary disease, presumed presence of LV scar, VT (polymorphic) on monitor, syncopal history, I think he will require a more intensive EP evaluation. I think he should probably, with this in mind, undergo LHC and definitively assess his coronary anatomy. EF is borderline for requiring device therapy. Question EP study. Question ICD placement. Question VT ablation. He may very well have sleep apnea, most of his NSVT this January 2019 admission appears to be nocturnal, however with concerning baseline substrate and history intensive evaluation?intervention is I think required. 3. Cardiomyopathy. Apparent worsening in LVEF as above on a background of RCA distribution severe hypokinesis/akinesis. LHC as above. Eventual up titration of cardiomyopathy medications. Perhaps this is related to ectopy/tachycardia mediated (question ventricular). Evaluation as above. Time: 45 minutes spent [id number] time with patient discussing above issues. Disposition: Information transmitted to Dr. Rivera, hospitalist. Thank you for allowing me to participate in this patient's care. Sincerely: Sanjay Stark M.D., [facility]
--- NOTE | 2019-01-30 14:00 | DSE_ITS ---
Date of service: 01/30/19 Time of Service: 14:00 DS: Diagnosis Discharge Diagnosis (1) Chest pain, atypical: Status: Acute (2) CAD S/P percutaneous coronary angioplasty: Status: Chronic (3) HTN (hypertension) with goal to be determined: Status: Chronic (4) Hypokalemia: Status: Acute (5) PAD (peripheral artery disease): Status: Chronic (6) V-tach: Status: Chronic (7) History of syncope: Status: Chronic (8) Head pain: Status: Chronic Discharge Plan Disposition Patient Disposition: [facility] Condition: Fair Discharge Details Chief Complaint: Chest Pain Clinical Impression: Hypertensive urgency, Bilateral claudication of lower limb Reason For Visit: ATYPICAL CHEST PAIN, CAD, HYPOKALEMIA,HTN Admit Date/Time: 01/30/19 14:00 Admit Provider: Kam Garza Attending Provider: Kam Garza Primary Care Provider: Alex Daniels ED Provider: Ammon Rodriguez Hospital Course Hospital Course: Mr Mosher is a 58 year old male with PMHx of CAD s/p OR/ABDOUL with residual medical coronary artery disease, as well as history of PAD, hypertension, tobacco abuse, who presented was initially observed on hospitalist service for chest pain which woke him up from sleep. His workup ruled out acute coronary syndrome, but he did have an episode of 18 beats of Vtach on his first night and 10 beat of Vtach the 2nd night here. He was hypokalemic at the time and both of these episodes happened at night, though we do not know whether or not he was awake at the time. He underwent an echocardiogram which revealed an EF of 35-40% with inferior hypokinesis. While stress testing was also planned, this is now deferred in light of the patient sharing a new piece of information - that he had a syncopal episode in November of this year. The patient was seen at [facility] ED on 11/15/18 after a fall when he was diagnosed with left rib fractures. He, at the time, thought he must have tripped over a rock - however, he states that he actually can't remember and thinks that he was unconscious for over an hour and did not protect himself from this fall. He did hit his head. This really raised a concern for the patient having had cardiogenic syncope or a possible Vtach arrest. The patient was recommended transfer to a tertiary care facility for further workup by Dr Stark of cardiology. The patient was accepted in transfer by Dr Diez of [facility], pending bed availability. Meanwhile, our goal is to correct his potassium and titrate his beta blockers the best we can. The patient is in agreement with transfer and is medically stable for transfer. Care for patient as well as preparation of transfer paperwork on day of transfer took 60 minutes. Home Meds and New Rx's Prescriptions: New Nicotrol 10 mg Cartridge 30 cartridge inhalation Q2H PRN PRNQty: 0 RF: 0 potassium chloride [Klor-Con M20] 20 mEq Tablet,Er Particles/Crystals 40 meq PO BID Qty: 0 RF: 0 magnesium oxide 400 mg (241.3 mg magnesium) Tablet 400 mg PO BID Qty: 0 RF: 0 metoprolol tartrate 50 mg Tablet 50 mg PO BID Qty: 0 RF: 0 Continued atorvastatin [Lipitor] 80 MG tablet 80 mg PO DAILY 90 Days Qty: 90 RF: 3 isosorbide mononitrate 30 MG tablet extended release 24 hr 30 mg PO DAILY 90 Days Qty: 90 RF: 3 amlodipine 10 MG tablet 10 mg PO HS 90 Days Qty: 90 RF: 3 nitroglycerin [Nitrostat] 0.4 MG tablet, sublingual 0.4 mg Sublingual DIRECTED PRNQty: 25 RF: 6 hydrochlorothiazide 25 MG tablet 25 mg PO DAILY 90 Days Qty: 90 RF: 3 aspirin [Aspir-Low] 81 MG tablet,delayed release (DR/EC) 81 mg PO DAILY RF: 0 melatonin 3 MG tablet 3 mg PO HS PRNRF: 0 acetaminophen 500 MG tablet 1,000 mg PO PRN PRNRF: 0 losartan 25 MG tablet 50 mg PO DAILY RF: 0 potassium chloride 20 mEq tablet extended release 20 meq PO DAILY Qty: 14 RF: 0 ondansetron HCl [Zofran] 4 mg tablet 4 mg PO QID PRN (Reason: nausea and vomiting) Qty: 10 RF: 0 Discontinued metoprolol succinate 100 MG tablet extended release 24 hr 100 mg PO DAILY 90 Days Qty: 90 RF: 3 Discharge Instructions Activity:: Activity as Tolerated Diet:: Low Sodium Discharge Orders Discharge Orders: Discharge Order (Routine); Ordered 01/30/19 Ordered By: Clementine A Nicole Exam Narrative Exam Narrative: General: middle-aged male, appears somewhat older than his stated age, A&Ox3, anxious, sitting up in a chair HEENT: EOMI, MMM Heart: RRR, no m/r/g Lungs: CTAB GI: abdomen is soft, nontender, nondistended Extremities: no e/c/c BLE's, I cannot palpate a pedal pulse in R foot, but can in LLE. Both feet are warm. DS: Data Vitals/I&O Vitals and I&O: Vital Signs Temperature 35.7 C L 01/30/19 11:23 Temperature Source Tympanic 01/30/19 11:23 Pulse 87 01/30/19 11:23 Pulse Rhythm Regular 01/29/19 20:23 Pulse 84 01/28/19 21:00 Respiratory Rate 17 01/30/19 11:23 Respiratory Effort Non-Labored 01/29/19 20:23 Respiratory Depth Normal 01/29/19 20:23 Respiratory Pattern Normal 01/29/19 20:23 Blood Pressure 122/68 01/30/19 11:23 Blood Pressure Mean 76 01/28/19 20:35 Blood Pressure Position Sitting 01/28/19 19:23 Pulse Oximetry 99 01/30/19 11:23 Oxygen Delivery Method Room Air 01/30/19 11:23 Oxygen Flow Rate 0 01/30/19 11:23 Pain Level 8 01/30/19 12:51 Comment 01/30/19 11:23 Intake & Output 01/29/19 01/30/19 01/30/19 23:59 11:59 23:59 Intake Total 1963 / 3045.25 Balance 1964 / 1345.25 Weight 99 kg Intake: IV 754 / 1835.25 Oral 1210 / 1210 Other: Urine Color Pale Yellow Urine Appearance Clear Urine Odor None Comment patient states he uses toiet independently and has been using it frequently Voiding Methods Toilet Toilet Completed studies during hospitalization [Text1]: CXR 01/28/19: No acute pulmonary process. CT chest 01/28/19: Per my conversation with radiology, no PE in major vessels. No acute pulmonary process. CT abdomen/pelvis 01/28/19: No acute abnormality. 2. Marked atherosclerosis seen at the origins of the common iliac artery suggesting high grade stenosis. echo: 1. Left ventricle: The cavity size was normal. Systolic function was moderately reduced. The estimated ejection fraction was 35-40%. Diffuse hypokinesis. Severe hypokinesis of the inferior myocardium. The study is not technically sufficient to allow evaluation of LV diastolic function. 2. Mitral valve: There was moderate regurgitation. 3. Atrial septum: No defect or patent foramen ovale was identified. 4. Pulmonary arteries: Pulmonary systolic pressure was in the range of 25mm Hg to 35mm Hg. 5. Inferior vena cava: The vessel was patent and normal in size. The respirophasic diameter changes were blunted, RAP est 5-[address] head without contrast: No acute intracranial process. Labs on day of discharge: Labs from last 24 hours 01/30/19 01/29/19 06:29 06:37 Sodium 140 Potassium 3.3 L Chloride 103 Carbon Dioxide 26.1 Anion Gap 10.9 BUN 16 Creatinine 0.95 Estimated GFR/1.73 m2 >= 60.00 Glucose 88 Calcium 8.5 Magnesium 2.1 Procalcitonin < 0.1 01/30/19 07:30 Sputum Sputum Culture - Pending 01/30/19 07:30 Sputum Gram Stain - Pending Preliminary micro results at discharge 01/30/19 07:30 Sputum Culture - Pending Sputum Gram Stain - Pending [facility] Medical History (Updated 01/30/19 @ 14:01 by Clementine Rivera MD) CAD S/P percutaneous coronary angioplasty (Chronic) HTN (hypertension) with goal to be determined (Chronic) Hypokalemia (Acute) PAD (peripheral artery disease) (Chronic) Family History Mother No problems noted. Father No problems noted. Brother No problems noted. Social History Smoking/Tobacco Use Status: Current every day Tobacco Type: cigarettes Alcohol Intake: current Alcohol Intake frequency: a few times a month Drug use: Never Do you feel safe at home: Yes Do you feel safe in your relationship?: No
[2019-01-30] MEDS: Potassium Chloride 20 MEQ TABCR 40 MEQ PO ×2 (14:25→20:38)
[2019-01-30] MEDS: Atorvastatin 40 MG TAB 80 MG PO (20:37)
[2019-01-30] MEDS: Metoprolol 50 MG TAB PO (20:38)
[2019-01-30] MEDS: Normal Saline Flush 10 ML SYR IVP (20:54)
[2019-01-30] MEDS: amLODIPine 10 MG TAB PO (23:00)
[2019-01-31] VITALS (8 sets, daily range): BP systolic 118–153; BP diastolic 67–75; PULSE 44–55; RESP 17–19; TEMP 36–36.8; O2SAT 98–100
[2019-01-31] MEDS: Enoxaparin 40 MG/0.4 ML SYR SC (00:09)
[2019-01-31] MEDS: Normal Saline Flush 10 ML SYR IVP ×5 (04:50→20:19)
[2019-01-31] MEDS: Losartan 25 MG TAB 50 MG PO (08:56)
[2019-01-31] MEDS: Aspirin E.C. 81 MG TABEC PO (08:57)
[2019-01-31] MEDS: Magnesium Oxide 400 MG TAB PO ×2 (08:57→20:17)
[2019-01-31] MEDS: Isosorbide Mononitrate 30 MG TABCR PO (08:58)
[2019-01-31] MEDS: hydroCHLOROthiazide 25 MG TAB PO (08:58)
--- NOTE | 2019-01-31 09:15 | PDOC.CMDIS ---
- If Service Date Differs Date of service: 01/31/19 Time of Service: 09:15 LACE Index Scoring Tool - Questions: Length of Stay (in days): 3 Acuity (Admit via E.D.?): Yes Comorbidities: Previous M.I. E.D. Visits: 3 - Answers: Total Score: 10 Risk of Readmission: High Risk Care Management Discharge Reason for Hospitalization: Chest Pain Discharge Plan: Mati will be transfered to [facility] today once a bed is available. Patient/Family Education Needs: Patient transfered to [facility] via ambulance coordinated by RN [employer]
[2019-01-31] MEDS: Acetaminophen 500 MG TAB 1000 MG PO ×2 (09:17→18:46)
[2019-01-31 10:51] LABS: Anion Gap 6.3 mmol/L (3-11); BUN 16 mg/dL (7-18); CO2 29.7 mmol/L (21.0-32.0); CREATININE 1.01 mg/dL (0.70-1.30); Calcium 8.9 mg/dL (8.5-10.1); Chloride 103 mmol/L (98-107); Glucose 101 mg/dL (70-100); Magnesium 2.2 mg/dL (1.8-2.4); Potassium 3.8 mmol/L (3.5-5.1); Sodium 139 mmol/L (136-145)
[2019-01-31] MEDS: Potassium Chloride 20 MEQ TABCR 40 MEQ PO ×2 (12:07→20:17)
[2019-01-31] MEDS: Atorvastatin 40 MG TAB 80 MG PO (20:17)
== END 2019-01-31 22:04 | disposition short-term general hospital (02) | DRG 313 ==
LOC: ER 21:39 → MS 01-29 13:50
PROVIDERS: Admitting Provider Family Medicine; Emergency Provider Emergency Medicine; PCP Family Medicine; Visit Provider Internal Medicine
DX: R07.89 Other chest pain (principal); I47.2 Ventricular tachycardia; E87.6 Hypokalemia; I10 Essential (primary) hypertension; I25.10 Atherosclerotic heart disease of native coronary artery without angina pectoris; I73.9 Peripheral vascular disease, unspecified; R51 Headache; Z75.1 Person awaiting admission to adequate facility elsewhere; I25.2 Old myocardial infarction; F17.210 Nicotine dependence, cigarettes, uncomplicated; Z91.19 Patient's noncompliance with other medical treatment and regimen; Z98.61 Coronary angioplasty status
CPT/HCPCS: 36415; 74177; 80048; 80053; 80061; 80076; 83721; 84145; 85027; 93306; 96365; 96366; 96375; 99223; 99225; 99239; 99285; J1650; 70450; 71045; 71260; 83735; 83880; 84443; 84484; 85025; 85610; 85730; 87070; 87205; 93005; 93010; 99220; 99232; 99284; G0378; J2270; J3475; J3480; J3490

== ENCOUNTER → 2019-01-30 10:17 | Outpatient (BNVA) | payer MEDICARE, SELFPAY | PROVIDERS: PCP Family Medicine; Visit Provider Internal Medicine Interventional Cardiology | DX: R69 Illness, unspecified (principal) | CPT/HCPCS: 99254 ==

== ENCOUNTER 2020-08-28 10:23 | Emergency (ER) | payer OTHER, SELFPAY ==
--- NOTE | 2020-08-28 10:24 | ED.GENADUL_ITS ---
Discharge Plan Disposition Patient Disposition: HOME Condition: Stable Discharge Details Clinical Impression: Tibial plateau fracture, right, Effusion of right knee Primary Care Provider: Alex Daniels ED Provider: Dilcia Ramirez Home Meds and New Rx's Prescriptions: New oxycodone 5 mg tablet 5 mg PO Q6H PRN (Reason: pain) Qty: 14 RF: 0 Continued amlodipine 10 mg tablet 10 mg PO DAILY Qty: 90 RF: 3 losartan 25 mg tablet 25 mg PO DAILY Qty: 90 RF: 3 atorvastatin [Lipitor] 80 MG tablet 80 mg PO DAILY 90 Days Qty: 90 RF: 3 nitroglycerin [Nitrostat] 0.4 MG tablet, sublingual 0.4 mg Sublingual DIRECTED PRNQty: 25 RF: 6 aspirin [Aspir-Low] 81 MG tablet,delayed release (DR/EC) 81 mg PO DAILY RF: 0 acetaminophen 500 mg tablet 1,000 mg PO Q6H RF: 0 metoprolol tartrate 50 mg tablet 100 mg PO DAILY RF: 0 Nicotrol 10 mg Cartridge 30 cartridge inhalation Q2H PRN PRNQty: 0 RF: 0 potassium chloride [Klor-Con M20] 20 mEq Tablet,Er Particles/Crystals 40 meq PO BID Qty: 0 RF: 0 Discharge Instructions Instructions: Leg Fracture (ED), Swollen Knee Joint (ED) Additional Instructions: Rest, ice, and elevate the affected area as much as possible. Alternate tylenol and motrin as needed and directed for pain. Take oxycodone for pain not relieved with Tylenol or Motrin. Call the orthopedist office tomorrow to schedule a follow-up appointment for reevaluation. Return immediately to the emergency department if you develop any worsening or new concerning symptoms. Referrals: Gray Garcia MD [ [facility] STAFF PHYSICIAN] - Discharge Data Discharge Date/Time-TO BE ENTERED AT DEPARTURE: 08/28/20 17:17 Discharge Physician: Dilcia Ramirez Medical Decision Making 1030 -- 60-year-old male presents with left knee and heel pain after fall down 6 feet off a ladder landing on his feet onto concrete. He denies head injury, arm or right leg pain. He has significant edema and tenderness to the left knee, most specifically the suprapatellar region. Limited range of motion due to pain. No obvious limited laxity but exam limited due to pain. No proximal tibia tenderness. No tenderness palpation of left hip. No pain in left hip with range of motion. No midline lumbar spine tenderness. No tenderness palpation of left lower leg, ankle, foot or heel. Other than the left knee edema, there is no orthopedic deformities. Neurovascular intact. We will give a dose of oxycodone and refer for x-rays. Patient states he has tolerated oxycodone in the past. 1215 --imaging reviewed and note a prominent joint effusion suprapatellar bursa which may imply an occult fracture. Remainder of x-rays negative. Will refer for CT imaging to rule out occult fracture. Still complaining of pain, additional pain medication ordered. 1500 --long delay in going to CT due to multiple patients w/ radiologic studies ordered in ED. CT notes a large joint effusion with subtle tibial plateau fracture and possible ACL injury. Patient reassessed and still complaining of pain. Will give additional pain medication. Case discussed with Dr. Garcia who reviewed CT imaging and recommends knee immobilizer and crutches and nonweightbearing. Recommended joint aspiration at bedside for removal of blood which may help with pain. I was able to remove 130 cc of blood at bedside followed by injection of 10 cc of bupivacaine within joint with significant improvement in swelling and pain. Patient placed on orthopedic follow-up list. He was given a prescription for oxycodone. Usual and customary return precautions given prior to discharge. Medical Records Medical records reviewed: Yes I reviewed the patient's medical records. Imaging Data Radiologic Study: Radiologist's impression: XR PELVIS AP CLINICAL HISTORY: s/p fall 6 ft down onto concrete, r/o fx. TECHNIQUE: 2D digital imaging was performed. COMPARISON: CR XR FEMUR LT from 08/28/2020 FINDINGS: There is no obvious fracture of the pelvis bones and right hip. However, position of the left hip is somewhat suspicious. Recommended hip dedicated hip views. XR FEMUR LT CLINICAL HISTORY: fall onto leg onto concrete, r/o fx distal femur. TECHNIQUE: 2D digital imaging was performed. COMPARISON: CR XR PELVIS AP from 08/28/2020 FINDINGS: There is no evidence of obvious left femur fracture. Large joint effusion in the evident. This may indicate a significant internal derangement of the left knee or occult fracture. Advanced degenerative changes are also evident in the knee joint. IMPRESSION: No obvious fracture. Recommend dedicated hip views Large joint effusion in the knee evident. XR KNEE LT 3V AP,LAT,CLARISSA CLINICAL HISTORY: fall onto concrete, r/o fx. TECHNIQUE: 2D digital imaging was performed. COMPARISON: No exams were available for comparison FINDINGS: There is no evidence of acute fracture but there is a prominent joint effusion. Advanced degenerative changes are noted in all 3 compartments of the left knee. No osseous lesions. IMPRESSION: Advanced degenerative changes. Large joint effusion which is distending the suprapatellar bursa. This may imply the presence of an occult fracture given the trauma history here or other internal derangement. XR HEEL LT OS CALCIS CLINICAL HISTORY: fall onto leg, r/o fx. TECHNIQUE: 2D digital imaging was performed. COMPARISON: No exams were available for comparison FINDINGS: Two dedicated views of the left calcaneus including a lateral view and a Julio César axial view are submitted for interpretation. These images reveal no evidence of calcaneus fracture no radiopaque foreign body in the soft tissues. Plantar arch is maintained. CT LOWER EXTREMITY LT WO CLINICAL HISTORY: possible occult fx distal femur. TECHNIQUE: Imaging Protocol: Axial computed tomography images with coronal and sagittal reformatted images were created and reviewed. CONTRAST MATERIAL: Intravenous: None Oral: None COMPARISON: X-rays earlier same day reviewed FINDINGS: There is a large knee joint effusion filling the suprapatellar bursa. This does not contain fat fluid level. There are advanced degenerative osteoarthritic changes in the knee joint. In addition, there is a subtle suggestion of a nondepressed tibial plateau fracture in the posterior aspect of the medial tibial plateau. Significant meniscal attenuation. Fluid at the location of the ACL. IMPRESSION: Large joint effusion. Subtle tibial plateau fracture, nondepressed. Possible ACL injury. HPI General Mode of arrival: wheelchair . Date/Time Provider Initiated Documentation: 08/28/20 10:24 . Limitations to Documentation: no limitations . Information obtained by: patient . HPI Narrative: Patient is a 60-year-old male presents with left knee and heel pain after a slip and fall off of a ladder down 6 feet last night landing on his feet onto concrete. Patient states he was wearing boots at the time. Patient states he was driving a piece of wood while standing on a ladder and fell down landing mainly on his left leg. He states the most pain is in his left knee but also complaining of pain in his left heel. He took Tylenol this morning without relief. He denies head injury, LOC, vomiting, neck pain, chest pain, abdominal pain, shortness of breath, back pain, arm pain or right leg pain. He states he has been unable to bear weight on his left leg due to his knee and heel pain. Related Data Home Medications Medication Instructions Recorded Confirmed aspirin [Aspir-Low] 81 mg PO DAILY 08/04/13 08/28/20 atorvastatin [Lipitor] 80 mg PO DAILY 90 Days #90 tab-cap 01/06/18 08/28/20 nitroglycerin [Nitrostat] 0.4 mg SUBLINGUAL DIRECTED PRN 01/06/18 08/28/20 #25 tab-cap Nicotrol 30 cartridge INHALATION Q2H PRN 01/30/19 08/28/20 PRN #0 ea potassium chloride [Klor-Con M20] 40 meq PO BID #0 tab 01/30/19 08/28/20 acetaminophen 500 mg tablet 1,000 mg PO Q6H tab 04/19/19 08/28/20 amlodipine 10 mg tablet 10 mg PO DAILY #90 tab-cap 12/22/19 08/28/20 losartan 25 mg tablet 25 mg PO DAILY #90 tab 12/22/19 08/28/20 metoprolol tartrate 100 mg PO DAILY 08/28/20 08/28/20 oxycodone 5 mg PO Q6H PRN #14 tab 08/28/20 Previous Rx's Medication Instructions Recorded atorvastatin [Lipitor] 80 mg PO DAILY 90 Days #90 tab-cap 01/06/18 Nicotrol 30 cartridge INHALATION Q2H PRN 01/30/19 PRN #0 ea potassium chloride [Klor-Con M20] 40 meq PO BID #0 tab 01/30/19 amlodipine 10 mg tablet 10 mg PO DAILY #90 tab-cap 12/22/19 losartan 25 mg tablet 25 mg PO DAILY #90 tab 12/22/19 oxycodone 5 mg PO Q6H PRN #14 tab 08/28/20 Allergies Allergy/AdvReac Type Severity Reaction Status Date / Time codeine Allergy Intermediate Wheezing Verified 08/28/20 10:35 General HALLIE: 2 Review of Systems All systems reviewed & are unremarkable except as noted in HPI and below Constitutional Constitutional: Reports as per HPI, Denies chills and Denies fever(s) Eyes Eyes: Denies blurry vision ENT Ears, Nose, Mouth, and Throat: Denies dizziness, Denies sore throat and Denies throat swelling Cardiovascular Cardiovascular: Denies chest pain and Denies dyspnea Respiratory Respiratory: Denies cough and Denies dyspnea Gastrointestinal Gastrointestinal: Denies abdominal pain, Denies diarrhea and Denies vomiting Genitourinary Genitourinary: Denies hematuria and Denies dysuria Musculoskeletal Musculoskeletal: Denies back pain and Denies numbness Integumentary/Breasts Skin/Breast: Denies lesions and Denies rash Neurologic Neurologic: Denies dizziness, Denies localized weakness and Denies numbness Allergic/Immunologic Allergic/Immunologic: Denies throat swelling [facility] Medical History (Updated 08/28/20 @ 16:49 by Dilcia Ramirez DO) CAD S/P percutaneous coronary angioplasty (~2008) RCA HTN (hypertension) with goal to be determined Hypokalemia PAD (peripheral artery disease) High grade stenosis of the origins of the common iliac arteries due to atherosclerosis Family History Mother No problems noted. Father , heart at age 68. No problems noted. Brother No problems noted. Social History Smoking/Tobacco Use Status: Current every day Tobacco Type: cigarettes Smoking risk assessment performed?: Yes Alcohol Intake: current Alcohol Intake frequency: a few times a month Drug use: Never Do you feel safe at home: Yes Do you feel safe in your relationship?: No Exam Const General: cooperative, healthy appearing and no acute distress HENIA Head: normal to inspection Mouth: oral mucosae normal Eyes General: appearance normal, both eyes and all related structures Neck Neck: normal visual inspection Resp Effort & Inspection: normal respiratory effort and able to speak in complete sentences Cardio Rate: regular rate Skin General skin exam: no rashes or lesions noted Neuro General: patient alert, patient awake and patient oriented x3 Motor: muscle tone normal throughout Extrem Right upper extremity: normal to inspection, full ROM and normal capillary refill Left upper extremity: normal to inspection, full ROM and normal capillary refill Right lower extremity: normal to inspection and full ROM Left lower extremity: hip/thigh Details: normal ROM; no tenderness and no swelling, knee Details: tenderness Location: of the patella Details: superiorly, of the medial joint line and of the lateral joint line, swelling Location: of the patella and abnormal ROM Details: pain with active ROM Details: with extension and with flexion and pain with passive ROM Details: with extension and with flexion, lower leg Details: normal to inspection; no erythema and no tenderness, ankle Details: normal to inspection and no edema; no tenderness and no swelling and foot Details: normal capillary refill, normal to inspection and vascular exam Details: dorsalis pedis pulse present and posterior tibial pulse present; no tenderness, no unusual warmth, no edema and no ecchymosis Psych Appearance: grossly normal Affect: normal affect Procedures Joint Aspiration/Injection Joint Asp./Inject. 1: Time Out Performed: Yes Side of body: left Joint Aspirated: knee Ultrasound Guidance: No Skin Prep: sterile prep and drape Local Anesthetic: Bupivicaine 0.25% Amount of anesthesia used (mL): 4 Needle Size Used: 18G Fluid Obtained: bloody Total fluid obtained (mL): 130 Medication Injected, if any: other (bupivicaine 0.25%) Amount of Medication Injected (mls): 10 Patient Tolerated Procedure: well Complications: none
[2020-08-28 10:30] VITALS: BP 171/94; PULSE 74; RESP 16; TEMP 37.3; O2SAT 99
--- NOTE | 2020-08-28 10:45 | DI.RAD_ITS ---
EXAM: XR FEMUR LT CLINICAL HISTORY: fall onto leg onto concrete, r/o fx distal femur. TECHNIQUE: 2D digital imaging was performed. COMPARISON: CR XR PELVIS AP from 08/28/2020 FINDINGS: There is no evidence of obvious left femur fracture. Large joint effusion in the evident. This may indicate a significant internal derangement of the lef t knee or occult fracture. Advanced degenerative changes are also evident in the knee joint. IMPRESSION: DATA REPOSITORY: RADIATION DOSE DELIVERED:
--- NOTE | 2020-08-28 10:45 | DI.RAD_ITS ---
EXAM: XR PELVIS AP CLINICAL HISTORY: s/p fall 6 ft down onto concrete, r/o fx. TECHNIQUE: 2D digital imaging was performed. COMPARISON: CR XR FEMUR LT from 08/28/2020 FINDINGS: There is no obvious fracture of the pelvis bones and right hip. However, position of the left hip is somewhat suspicious. Recommended hip dedicated hip views. IMPRESSION: No obvious fracture. Recommend dedicated hip views Large joint effusion in the knee evident. DATA REPOSITORY: RADIATION DOSE DELIVERED:
--- NOTE | 2020-08-28 10:45 | DI.RAD_ITS ---
EXAM: XR HEEL LT OS CALCIS CLINICAL HISTORY: fall onto leg, r/o fx. TECHNIQUE: 2D digital imaging was performed. COMPARISON: No exams were available for comparison FINDINGS: Two dedicated views of the left calcaneus including a lateral view and a Julio César axial view are submitt ed for interpretation. These images reveal no evidence of calcaneus fracture no radiopaque foreign body in the soft tissues. Plantar arch is maintained. IMPRESSION: DATA REPOSITORY: RADIATION DOSE DELIVERED:
--- NOTE | 2020-08-28 10:45 | DI.RAD_ITS ---
EXAM: XR KNEE LT 3V AP,LAT,CLARISSA CLINICAL HISTORY: fall onto concrete, r/o fx. TECHNIQUE: 2D digital imaging was performed. COMPARISON: No exams were available for comparison FINDINGS: There is no evidence of acute fracture but there is a prominent joint effusion. Advanced degenerativ e changes are noted in all 3 compartments of the left knee. No osseous lesions. IMPRESSION: Advanced degenerative changes. Large joint effusion which is distending the suprapatellar bursa. Th is may imply the presence of an occult fracture given the trauma history here or other internal deran gement. DATA REPOSITORY: RADIATION DOSE DELIVERED:
[2020-08-28] MEDS: oxyCODONE 10 MG TAB PO ×3 (11:05→15:30)
--- NOTE | 2020-08-28 12:15 | DI.CT_ITS ---
EXAM: CT LOWER EXTREMITY LT WO CLINICAL HISTORY: possible occult fx distal femur. TECHNIQUE: Imaging Protocol: Axial computed tomography images with coronal and sagittal reformatted images were created and reviewed. CONTRAST MATERIAL: Intravenous: None Oral: None COMPARISON: X-rays earlier same day reviewed FINDINGS: There is a large knee joint effusion filling the suprapatellar bursa. This does not contain fat flui d level. There are advanced degenerative osteoarthritic changes in the knee joint. In addition, there is a subtle suggestion of a nondepressed tibial plateau fracture in the posterior aspect of the medial tibial plateau. Significant meniscal attenuation. Fluid at the location of the ACL. IMPRESSION: Large joint effusion. Subtle tibial plateau fracture, nondepressed. Possible ACL injury. RADIATION DOSE DELIVERED: 446.65mGy.cm Total DLP DATA REPOSITORY: All CT scans at this facility are submitted to the National Radiology Data Registry (NRDR) Dose Index Registry (DIR) with the [employer] (A[employer]). RADIATION OPTIMIZATION: All CT scans at this facility use at least one of these dose optimization te chniques: automated exposure control; mA and/or kV adjustment per patient size (includes targeted exa ms where dose is matched to clinical indication); or iterative reconstruction.
[2020-08-28 12:34] VITALS: BP 161/85; PULSE 60; RESP 16; TEMP 36.3; O2SAT 98
[2020-08-28 15:00] VITALS: BP 180/76; PULSE 54; RESP 16; TEMP 36.3; O2SAT 99
--- NOTE | 2020-08-28 17:25 | OCONE_ITS ---
Date of service: 08/28/20 Time of Service: 16:26 History of Present Illness History of Present Illness Chief Complaint: Left Leg Pain Narrative: Chandni is a 60-year-old who fell off a ladder yesterday. He landed awkwardly onto the left leg primarily. He had some immediate pain but was able to bear weight initially, although it hurt. He continued to hobble to the point where he was having a hard time bearing weight due to pain. The pain was localized to the knee itself. He noted significant swelling. He denies any pain in his hip or in the foot but does have pain from the knee radiating both proximally and distally. He does report having some pain in the left knee in the past with multiple previous arthroscopic procedures. The pain is intense and stable. Is worsened with any weightbearing or movement. Consults Consult date: 08/28/20 Requesting physician: Dilcia Ramirez Consult Reason Left knee pain Assessment and Plan Assessment and plan (1) Fracture of left tibial plateau: Status: Acute Assessment and plan: Mati is a 60-year-old had a fall from ladder yesterday. This fall from height injured his left knee. He has notable dege nerative changes of the left knee. The fracture of the tibial plateau seen on the CT scan are most indicative of a compressive injury to the posterior aspect tibial plateau. However, this could represent an avulsion type injury with subsequent ACL PCL injury. Nevertheless, he has overwhelming degenerative changes and therefore he would not be a candidate for any complex ligamentous reconstruction but rather a knee replacement. The fracture is relatively subtle and it is possible that his knee may continue to function at least as well as it was in the past. However, my suspicion is that his arthritis will be notably exacerbated from this fall and fracture. He does have a large joint effusion which is likely a hemarthrosis. This could be removed here in the emergency department for pain control. He will need to be partial weightbearing. He may move the knee as tolerated but should avoid repetitive or excessive weightbearing. He should supplement his weightbearing with assistive devices, either walker or crutches. It will take a few weeks for the pain to subside but once it does he should have a quick return of some function to the knee. I will see him back in 2 weeks for repeat evaluation of how he is doing and discuss his plan once again. If he does not have good return of function and decrease in pain we could consider knee replacement in the future. Fortunately, there is no sign of other concomitant injuries which are associated with fall from height. Qualifiers: Encounter type: initial encounter Fracture type: closed Qualified Code(s): S82.142A - Displaced bicondylar fracture of left tibia, initial encount er for closed fracture (2) Arthritis of left knee: Status: Acute Review of Systems All systems reviewed & are unremarkable except as noted in HPI and below PFSH Medical History CAD S/P percutaneous coronary angioplasty (~2008) RCA HTN (hypertension) with goal to be determined Hypokalemia PAD (peripheral artery disease) High grade stenosis of the origins of the common iliac arteries due to atherosclerosis Family History Mother No problems noted. Father , heart at age 68. No problems noted. Brother No problems noted. Social History Smoking/Tobacco Use Status: Current every day Tobacco Type: cigarettes Smoking risk assessment performed?: Yes Alcohol Intake: current Alcohol Intake frequency: a few times a month Drug use: Never Do you feel safe at home: Yes Do you feel safe in your relationship?: No Exam Narrative Exam Narrative: Mati is sitting up in the hospital bed. Head is normocephalic and atraumatic. Alert and oriented x3. No acute distress. Evaluation of the left leg shows significant swelling around the left knee with a large effusion which is tense in the suprapatellar space. There is pain to palpation throughout the knee itself, focus mostly at the joint lines, mostly posteriorly compared to anterior. No ecchymosis appreciated. No break in the skin. No significant pain to palpation over the distal tib-fib area. He is able demonstrate some gentle toe extension and toe flexion along with ankle dorsiflexion, ankle plantarflexion, although the subtle motion still cause pain in the knee. Sensation intact to light touch over the deep and superficial peroneal nerve and tibial nerve. No pain to palpation of the heel. Pelvis is nontender to palpation and compression. Results Last Vital Signs Temp 36.3 C L 08/28/20 15:00 Pulse 54 L 08/28/20 15:00 Resp 16 08/28/20 15:00 BP 180/76 H 08/28/20 15:00 Pulse Ox 99 08/28/20 15:00 Imaging Imaging Studies: The following imaging studies were reviewed personally by myself and discussed with the patient: X-ray of the left knee demonstrate severe arthritic change throughout all 3 compartments but most focused over the medial compartment where there is complete [id number] articulation with loss of cartilaginous joint space. Large osteophytes are present throughout all 3 compartments especially medially. Large joint effusion present. X-ray of the left femur does not demonstrate a fracture. Previously described arthritic changes are evident in the knee. There also are some degenerative changes seen of the left hip with subtle subchondral cyst over the lateral femoral head neck junction and prominence of the lateral acetabulum as seen in femoral acetabular impingement. No fracture. X-ray of the pelvis shows no fracture. Once again there are seen some early degenerative changes of the left hip but no apparent pelvic fracture is seen. X-ray of the left heel does not identify any fracture. No significant arthritic changes within the left hindfoot. No joint dislocation or subluxation. CT scan of the left knee demonstrates the severe degenerative changes as mentioned previously from the x-ray. There is a large joint effusion. There are large osteophytes throughout the entirety of the knee and into the notch. There is subtle fracture line seen in the posterior aspect the tibial plateau, more medially than laterally. These do not have any extension into the metaphysis or diaphysis of the tibia but largely represent compression or avulsion type injury at the level of the joint surface and subchondral bone. No dislocation or subluxation.
== END 2020-08-28 17:17 | disposition home or self-care (01) ==
PROVIDERS: Emergency Provider Physician Assistant; PCP Family Medicine
DX: S82.145A Nondisplaced bicondylar fracture of left tibia, initial encounter for closed fracture (principal); M25.462 Effusion, left knee; W11.XXXA Fall on and from ladder, initial encounter; I10 Essential (primary) hypertension
CPT/HCPCS: 20610; 73552; 73562; 99253; 99283; 99285; 72170; 73650; 73700; 99284

== ENCOUNTER → 2020-09-13 08:35 | Outpatient (BNVA) | payer OTHER, SELFPAY | PROVIDERS: PCP Family Medicine; Referring Provider Student in an Organized Health Care Education/Training Program; Visit Provider Physician Assistant | DX: S82.142A Displaced bicondylar fracture of left tibia, initial encounter for closed fracture (principal); W11.XXXA Fall on and from ladder, initial encounter; M17.12 Unilateral primary osteoarthritis, left knee | CPT/HCPCS: 99213 ==

== ENCOUNTER 2021-08-28 10:45 | Outpatient (REF) | payer MEDICARE, SELFPAY ==
--- OUTSIDE RECORDS SUMMARY | 2021-08-28 10:52 | XMS_ITS | CCD ---
:1960 Author Care Team Providers Name Role Phone FADI ENGLE MD Attending Physician Unavailable Donald SUÁREZ MD (Secondary) Physician Unavailab le Vital Signs Unknown or Not Available. Allergies Allergy Code Allergy Type Reaction Status No Known Allergies 0 No known allergies Act michelle Procedures Unknown or Not Available. History of Immunizations Immunization Code Date COVID-19, mRNA, LNP-S, PF, 100 mcg or 50 mcg dose 207 08/22/2021 influenza, injectable, quadrivalent, preservative free 150 08/25/2021 Problems Problem Code Start Date Resolved Date Status CAD 76750567 Active Hypertension 67384500 Active AFIB 81095787 Active Bradycardia 88524971 Active Acute on chronic 065577904 Active congestive heart failure Chest pain 09863535 Active Abdominal pain 37200557 Active CKD stage 3 229310595 Active ASCVD 76659809 Active Acute hypokalemia 46483103 08/20/2021 Resolved Ventricular tachycardia 59496001 08/21/2021 Reso lved HTN 82308277 08/20/2021 Resolved High cholesterol 46324925 01/18/2021 Resolved Asthma 056559818 01/18/2021 Resolved Acute on chronic 781184908 08/20/2021 Resolved diastolic heart failure NSTEMI 928891327 08/20/2021 Resolved Nicotine dependence 280195675 08/20/2021 Resolved with current use COPD 65385005 08/20/2021 Resolved Myocardial infarct 76563568 01/18/2021 Resolved Results Unknown or Not Available. Active Medications Medication Code Dose Units Frequency Route Modification Start Date/Time Acetaminophen 944712 6842 MILLIGRAMS NEEDED ORAL 08/25 500MG Oral EVERY 6 14:55 Capsule HOURS Prescription Detail TAKE 1000 MILLIGRAMS ORAL NEEDED EVERY 6 HOURS Albuterol Sulfate 4774740 1 EACH NEEDED INHALATION 0 08/25/2021 0.09MG/1Actuation FOUR TIMES 14: 55 Inhalation Suspension A DAY Prescription Detail 1 EACH INHALATION NEEDED FOUR TIMES A DAY Losartan 947633 1 TABLET DAILY ORAL 08/25/2021 Potassium 100MG 14:55 Oral Tablet Prescription Detail TAKE 1 TABLET ORAL DAILY Atorvastatin 475425 80 MILLIGRAMS DAILY ORAL 08/25/19 22 Calcium 80MG Oral 14:54 Tablet Prescription Detail TAKE 80 MILLIGRAMS ORAL JEFFREY Y Metoprolol 711054 50 MILLIGRAMS ORAL 08/25/2021 Succinate 50MG 14:54 Oral Tablet, Extended Release Prescription Detail TAKE 50 MILLIGRAMS ORAL amLODIPine 182181 5 MILLIGRAMS DAILY ORAL 08/25/2021 Besylate 5MG 14:53 Oral Tablet Prescription Detail TAKE 5 MILLIGRAMS ORAL DAILY Furosemide 40MG 594262 40 MILLIGRAMS DAILY ORAL 08/25 Oral Tablet 14:53 Prescription Detail TAKE 40 MILLIGRAMS ORAL JEFFREY Y Pantoprazole 372679 40 MILLIGRAMS DAILY ORAL 08/25/19 22 Sodium 40 MG Oral 14:51 Tablet, Delayed Release Prescription Detail TAKE 40 MILLIGRAMS ORAL JEFFREY Y Nitroglycerin 554584 0.4 MILLIGRAMS PRN SUBLINGUAL 01/03 0.4MG Sublingual Q5MIN 08:37 Tablet Prescription Detail DISSOLVE 0.4 MILLIGRAMS SUBL INGUAL PRN Q5MIN Aspirin 81MG 934282 81 MILLIGRAMS DAILY ORAL 07/04/20 20 Oral Tablet, 09:23 Enteric Coated Prescription Detail TAKE 81 MILLIGRAMS ORAL JEFFREY Y Medications Administered During Visit Unknown or Not Available. Encounters Encounter Diagnosis Diagnosis Code Start Date Hypertensive heart disease with heart failure I110 01/18/2021 Social History Smoking Status Code Start Date End Date Current every day smoker [id number] Patient Decision Aids Unknown or Not Available. Discharge Instructions You were admitted to [facility] on 01/18/2021 02:38 with a principal diagnosis of Hypertensive heart disease with heart failure You were discharged from [facility] on 01/20/2021 15:53 Should you have any questions prior to d ischarge, please contact a member of your healthcare team. If you have left the spital and have any questions, please contact your primary care physician. Chief Complaint and Reason For Visit Chief Complaint Date of Onset CHF Function Status Description Code Date Type Status No Impairments 21778097 07/04/2020 Functional Active Plan of Care Unknown or Not Available. Referral/Transition of Care Unknown or Not Available.
--- OUTSIDE RECORDS SUMMARY | 2021-08-28 10:52 | XMS_ITS | CCD ---
:1960 Author Care Team Providers Name Role Phone NIKOLE SOLANO Attending Physician Unavailable Vital Signs Unknown or Not Available. Allergies Allergy Code Allergy Type Reaction Status No Known Allergies 0 No known allergies Act michelle Procedures Unknown or Not Available. History of Immunizations Immunization Code Date COVID-19, mRNA, LNP-S, PF, 100 mcg or 50 mcg dose 207 08/22/2021 influenza, injectable, quadrivalent, preservative free 150 08/25/2021 Problems Problem Code Start Date Resolved Date Status CAD 91907160 Active Hypertension 66884554 Active AFIB 97771317 Active Bradycardia 01837257 Active Acute on chronic 964795453 Active congestive heart failure Chest pain 43998606 Active Abdominal pain 87083859 Active CKD stage 3 854943703 Active ASCVD 36329988 Active Acute hypokalemia 74545196 08/20/2021 Resolved Ventricular tachycardia 40046479 08/21/2021 Reso lved HTN 75948140 08/20/2021 Resolved Acute on chronic 222558179 08/20/2021 Resolved diastolic heart failure NSTEMI 267598297 08/20/2021 Resolved Nicotine dependence 214900200 08/20/2021 Resolved with current use COPD 32706278 08/20/2021 Resolved Results Unknown or Not Available. Active Medications Medication Code Dose Units Frequency Route Modification Start Date/Time Acetaminophen 982619 7696 MILLIGRAMS NEEDED ORAL 08/25 500MG Oral EVERY 6 14:55 Capsule HOURS Prescription Detail TAKE 1000 MILLIGRAMS ORAL NEEDED EVERY 6 HOURS Albuterol Sulfate 7225386 1 EACH NEEDED INHALATION 0 08/25/2021 0.09MG/1Actuation FOUR TIMES 14: 55 Inhalation Suspension A DAY Prescription Detail 1 EACH INHALATION NEEDED FOUR TIMES A DAY Losartan 265340 1 TABLET DAILY ORAL 08/25/2021 Potassium 100MG 14:55 Oral Tablet Prescription Detail TAKE 1 TABLET ORAL DAILY Atorvastatin 093946 80 MILLIGRAMS DAILY ORAL 08/25/19 22 Calcium 80MG Oral 14:54 Tablet Prescription Detail TAKE 80 MILLIGRAMS ORAL JEFFREY Y Metoprolol 935535 50 MILLIGRAMS ORAL 08/25/2021 Succinate 50MG 14:54 Oral Tablet, Extended Release Prescription Detail TAKE 50 MILLIGRAMS ORAL amLODIPine 643534 5 MILLIGRAMS DAILY ORAL 08/25/2021 Besylate 5MG 14:53 Oral Tablet Prescription Detail TAKE 5 MILLIGRAMS ORAL DAILY Furosemide 40MG 909743 40 MILLIGRAMS DAILY ORAL 08/25 Oral Tablet 14:53 Prescription Detail TAKE 40 MILLIGRAMS ORAL JEFFREY Y Pantoprazole 766487 40 MILLIGRAMS DAILY ORAL 08/25/19 22 Sodium 40 MG Oral 14:51 Tablet, Delayed Release Prescription Detail TAKE 40 MILLIGRAMS ORAL JEFFREY Y Nitroglycerin 322698 0.4 MILLIGRAMS PRN SUBLINGUAL 01/03 0.4MG Sublingual Q5MIN 08:37 Tablet Prescription Detail DISSOLVE 0.4 MILLIGRAMS SUBL INGUAL PRN Q5MIN Aspirin 81MG 174032 81 MILLIGRAMS DAILY ORAL 07/04/20 20 Oral Tablet, 09:23 Enteric Coated Prescription Detail TAKE 81 MILLIGRAMS ORAL JEFFREY Y Medications Administered During Visit Unknown or Not Available. Encounters Unknown or Not Available. Social History Smoking Status Code Start Date End Date Current every day smoker 219576665 Patient Decision Aids Unknown or Not Available. Discharge Instructions You were admitted to [facility] on 08/20/2021 12:55 You were discharged from [facility] on 08/25/2021 17:33 Should you have any questions prior to d ischarge, please contact a member of your healthcare team. If you have left the spital and have any questions, please contact your primary care physician. Chief Complaint and Reason For Visit Unknown or Not Available. Function Status Unknown or Not Available. Plan of Care Unknown or Not Available. Referral/Transition of Care Unknown or Not Available.
--- OUTSIDE RECORDS SUMMARY | 2021-08-28 10:52 | XMS_ITS | CCD ---
:1960 Author Care Team Providers Name Role Phone MARE CHUNG MD Attending Physician Unavailable Donald SUÁREZ MD Er Physician 1 Unavailable Donald SUÁREZ MD Rounding (Secondary) Physician Unavailab le Vital Signs Vital Sign Value Unit Date/Time Recent/Initial? BMI (Body Mass Index) 33.23 kg/m^2 01/18/2021 02:45 In itial VS Weight Measured 245 lbs 01/18/2021 02:45 Initial VS Height 72 in 01/18/2021 02:45 Initial VS BSA (Body Surface 2.38 m^2 01/18/2021 02:45 Initia l VS Area) BP Systolic 209 mmHg 01/18/2021 02:45 Initial VS BP Diastolic 95 mmHg 01/18/2021 02:45 Initial VS Respiratory Rate 21 bpm 01/18/2021 02:45 Initial VS Heart Rate 53 bpm 01/18/2021 02:45 Initial VS O2 % BldC Oximetry 96 % 01/18/2021 02:45 Initi al VS Body Temperature 36.4 degrees 01/18/2021 02:45 Initial VS Weight Measured 237.9 lbs 01/23/2021 06:28 Most Rec ent VS BP Systolic 155 mmHg 01/23/2021 11:09 Most Recent VS BP Diastolic 78 mmHg 01/23/2021 11:09 Most Recent VS Respiratory Rate 19 bpm 01/23/2021 11:09 Most Re cent VS Heart Rate 52 bpm 01/23/2021 11:09 Most Recent VS O2 % BldC Oximetry 96 % 01/23/2021 11:09 Most Recent VS Body Temperature 36 degrees 01/23/2021 11:09 Most Re cent VS Allergies Allergy Code Allergy Type Reaction Status No Known Allergies 0 No known allergies Act michelle Procedures Unknown or Not Available. History of Immunizations Immunization Code Date COVID-19, mRNA, LNP-S, PF, 100 mcg or 50 mcg dose 207 08/22/2021 influenza, injectable, quadrivalent, preservative free 150 08/25/2021 Problems Problem Code Start Date Resolved Date Status CAD 26833144 Active Hypertension 07838034 Active AFIB 50728672 Active Bradycardia 63518002 Active Acute on chronic 024758821 Active congestive heart failure Chest pain 76186975 Active Abdominal pain 63511106 Active CKD stage 3 890787077 Active ASCVD 31717648 Active Acute hypokalemia 60874943 08/20/2021 Resolved Ventricular tachycardia 55866042 08/21/2021 Reso lved HTN 86586957 08/20/2021 Resolved Acute on chronic 292294510 08/20/2021 Resolved diastolic heart failure NSTEMI 311093123 08/20/2021 Resolved Nicotine dependence 379505191 08/20/2021 Resolved with current use COPD 96415114 08/20/2021 Resolved Results BASIC METABOLIC PANEL (BMP) - Collect Da te/Time: 01/23/2021 06:10 Test Name Code Test Result Test Units Test Ref Range GLUCOSE 2345-7 91 mg/dL L=70 H=11 6 BUN 3094-0 25 mg/dL L=6 H=25 CREATININE 2160-0 1.57 mg/dL L=0.67 H=1.17 SODIUM SERUM 2951-2 140 mmol/L L=136 H=14 5 POTASSIUM SERUM 2823-3 4.1 mmol/L L=3.4 H =5.2 CHLORIDE SERUM 2075-0 102 mmol/L L=96 H= 110 CARBON DIOXIDE (CO2) 2028-9 33 mmol/L L=22 H=34 ANION GAP 74415-1 4.7 mmol/L CALCIUM SERUM 67244-2 9.0 mg/dL L=8.2 H=10.2 AGE 60 years eGFR (non-Afr.Amer.) 97429-7 45 mL/min eGFR (Afr-Libyan) 18094-9 55 mL/min BASIC METABOLIC PANEL (BMP) - Collect Da te/Time: 01/22/2021 08:42 Test Name Code Test Result Test Units Test Ref Range GLUCOSE 2345-7 99 mg/dL L=70 H=11 6 BUN 3094-0 27 mg/dL L=6 H=25 CREATININE 2160-0 1.54 mg/dL L=0.67 H=1.17 SODIUM SERUM 2951-2 140 mmol/L L=136 H=14 5 POTASSIUM SERUM 2823-3 3.9 mmol/L L=3.4 H =5.2 CHLORIDE SERUM 2075-0 103 mmol/L L=96 H= 110 CARBON DIOXIDE (CO2) 2028-9 31 mmol/L L=22 H=34 ANION GAP 62324-9 5.6 mmol/L CALCIUM SERUM 84440-6 9.0 mg/dL L=8.2 H=10.2 AGE 60 years eGFR (non-Afr.Amer.) 37423-6 46 mL/min eGFR (Afr-Libyan) 36271-3 56 mL/min BASIC METABOLIC PANEL (BMP) - Collect Da te/Time: 01/21/2021 21:45 Test Name Code Test Result Test Units Test Ref Range GLUCOSE 2345-7 112 mg/dL L=70 H=11 6 BUN 3094-0 33 mg/dL L=6 H=25 CREATININE 2160-0 1.70 mg/dL L=0.67 H=1.17 SODIUM SERUM 2951-2 141 mmol/L L=136 H=14 5 POTASSIUM SERUM 2823-3 3.8 mmol/L L=3.4 H =5.2 CHLORIDE SERUM 2075-0 101 mmol/L L=96 H= 110 CARBON DIOXIDE (CO2) 2028-9 33 mmol/L L=22 H=34 ANION GAP 19087-5 7.5 mmol/L CALCIUM SERUM 66007-7 9.5 mg/dL L=8.2 H=10.2 AGE 60 years eGFR (non-Afr.Amer.) 52219-9 41 mL/min eGFR (Afr-Libyan) 81478-4 50 mL/min BASIC METABOLIC PANEL (BMP) - Collect Da te/Time: 01/21/2021 06:15 Test Name Code Test Result Test Units Test Ref Range GLUCOSE 2345-7 93 mg/dL L=70 H=11 6 BUN 3094-0 28 mg/dL L=6 H=25 CREATININE 2160-0 1.58 mg/dL L=0.67 H=1.17 SODIUM SERUM 2951-2 141 mmol/L L=136 H=14 5 POTASSIUM SERUM 2823-3 3.6 mmol/L L=3.4 H =5.2 CHLORIDE SERUM 2075-0 103 mmol/L L=96 H= 110 CARBON DIOXIDE (CO2) 2028-9 31 mmol/L L=22 H=34 ANION GAP 65866-0 7.4 mmol/L CALCIUM SERUM 35497-0 9.1 mg/dL L=8.2 H=10.2 AGE 60 years eGFR (non-Afr.Amer.) 56173-8 45 mL/min eGFR (Afr-Libyan) 49913-2 54 mL/min BASIC METABOLIC PANEL (BMP) - Collect Da te/Time: 01/20/2021 07:10 Test Name Code Test Result Test Units Test Ref Range GLUCOSE 2345-7 98 mg/dL L=70 H=11 6 BUN 3094-0 25 mg/dL L=6 H=25 CREATININE 2160-0 1.31 mg/dL L=0.67 H=1.17 SODIUM SERUM 2951-2 139 mmol/L L=136 H=14 5 POTASSIUM SERUM 2823-3 3.6 mmol/L L=3.4 H =5.2 CHLORIDE SERUM 2075-0 103 mmol/L L=96 H= 110 CARBON DIOXIDE (CO2) 8-9 28 mmol/L L=22 H=34 ANION GAP 23638-5 8.4 mmol/L CALCIUM SERUM 72594-3 9.1 mg/dL L=8.2 H=10.2 AGE 60 years eGFR (non-Afr.Amer.) 93247-9 56 mL/min eGFR (Afr-Libyan) 66635-1 68 mL/min BASIC METABOLIC PANEL (BMP) - Collect Da te/Time: 01/19/2021 06:10 Test Name Code Test Result Test Units Test Ref Range GLUCOSE 2345-7 99 mg/dL L=70 H=11 6 BUN 3094-0 20 mg/dL L=6 H=25 CREATININE 2160-0 1.38 mg/dL L=0.67 H=1.17 SODIUM SERUM 2951-2 139 mmol/L L=136 H=14 5 POTASSIUM SERUM 2823-3 3.5 mmol/L L=3.4 H =5.2 CHLORIDE SERUM 2075-0 101 mmol/L L=96 H= 110 CARBON DIOXIDE (CO2) 2028-9 30 mmol/L L=22 H=34 ANION GAP 38971-0 8.4 mmol/L CALCIUM SERUM 53238-4 8.8 mg/dL L=8.2 H=10.2 AGE 60 years eGFR (non-Afr.Amer.) 01982-5 53 mL/min eGFR (Afr-Libyan) 70042-9 64 mL/min BASIC METABOLIC PANEL (BMP) - Collect Da te/Time: 01/18/2021 06:30 Test Name Code Test Result Test Units Test Ref Range GLUCOSE 2345-7 97 mg/dL L=70 H=11 6 BUN 3094-0 16 mg/dL L=6 H=25 CREATININE 2160-0 1.29 mg/dL L=0.67 H=1.17 SODIUM SERUM 2951-2 141 mmol/L L=136 H=14 5 POTASSIUM SERUM 2823-3 3.5 mmol/L L=3.4 H =5.2 CHLORIDE SERUM 2075-0 103 mmol/L L=96 H= 110 CARBON DIOXIDE (CO2) 2028-9 27 mmol/L L=22 H=34 ANION GAP 80360-6 10.8 mmol/L CALCIUM SERUM 98568-2 8.8 mg/dL L=8.2 H=10.2 AGE 60 years eGFR (non-Afr.Amer.) 63588-1 57 mL/min eGFR (Afr-Libyan) 89191-8 69 mL/min BNP (PRO-B NATRIURETIC PEPTIDE) - [facility] Date/Time: 01/21/2021 06:15 Test Name Code Test Result Test Units Test Ref Range NT-proBNP 80497-9 358.0 pg/mL L=0.0 H=12 5 BNP (PRO-B NATRIURETIC PEPTIDE) - [facility] t Date/Time: 01/18/2021 00:58 Test Name Code Test Result Test Units Test Ref Range NT-proBNP 16943-9 4133.0 pg/mL L=0.0 H=12 5 COMPREHENSIVE METABOLIC PANEL (CMP) - Nc llect Date/Time: 01/18/2021 00:58 Test Name Code Test Result Test Units Test Ref Range GLUCOSE 2345-7 109 mg/dL L=70 H=11 6 BUN 3094-0 17 mg/dL L=6 H=25 CREATININE 2160-0 1.20 mg/dL L=0.67 H=1.17 SODIUM SERUM 2951-2 141 mmol/L L=136 H=14 5 POTASSIUM SERUM 2823-3 3.9 mmol/L L=3.4 H =5.2 CHLORIDE SERUM 2075-0 103 mmol/L L=96 H= 110 CARBON DIOXIDE (CO2) 2028-9 26 mmol/L L=22 H=34 ANION GAP 04787-4 11.6 mmol/L CALCIUM SERUM 90866-7 9.2 mg/dL L=8.2 H=10.2 BILIRUBIN TOTAL 1975-2 0.8 mg/dL L=0.0 H =1.3 ALK. PHOS. 6768-6 89 U/L L=46 H=11 6 SGOT (AST) 1920-8 33 U/L L=15 H=37 SGPT (ALT) 1742-6 42 U/L L=12 H=78 TOTAL PROTEIN 2885-2 7.3 gm/dL L=6.0 H=8 .0 ALBUMIN 1751-7 3.4 gm/dL L=3.4 H=5. 0 AGE 60 years eGFR (non-Afr.Amer.) 29563-1 62 mL/min eGFR (Afr-Libyan) 77947-4 75 mL/min TROPONIN-I - Collect Date/Time: 01/24/20 06:10 Test Name Code Test Result Test Units Test Ref Range TROPONIN-I 27802-7 <0.017 ng/mL L=0.000 H=0.060 Specimen seq. Random N/A TROPONIN-I - Collect Date/Time: 01/23/20 08:42 Test Name Code Test Result Test Units Test Ref Range TROPONIN-I 16217-6 <0.017 ng/mL L=0.000 H=0.060 Specimen seq. Random N/A TROPONIN-I - Collect Date/Time: 01/22/20 21 21:45 Test Name Code Test Result Test Units Test Ref Range TROPONIN-I 14640-1 0.018 ng/mL L=0.000 H=0.060 Specimen seq. Random N/A TROPONIN-I - Collect Date/Time: 01/22/20 06:15 Test Name Code Test Result Test Units Test Ref Range TROPONIN-I 99068-7 0.023 ng/mL L=0.000 H=0.060 Specimen seq. Day 2 N/A TROPONIN-I - Collect Date/Time: 01/21/20 07:10 Test Name Code Test Result Test Units Test Ref Range TROPONIN-I 35448-1 0.022 ng/mL L=0.000 H=0.060 Specimen seq. Random N/A TROPONIN-I - Collect Date/Time: 01/19/20 13:30 Test Name Code Test Result Test Units Test Ref Range TROPONIN-I 05724-4 0.044 ng/mL L=0.000 H=0.060 Specimen seq. Random N/A TROPONIN-I - Collect Date/Time: 01/19/20 06:30 Test Name Code Test Result Test Units Test Ref Range TROPONIN-I 00220-6 0.062 ng/mL L=0.000 H=0.060 Specimen seq. Random N/A TROPONIN-I ADM. - Collect Date/Time: 00:58 Test Name Code Test Result Test Units Test Ref Range TROPONIN-I 94264-0 0.072 ng/mL L=0.000 H=0. 060 CBC W/ DIFFERENTIAL - Collect Date/Time: 01/23/2021 06:10 Test Name Code Test Result Test Units Test Ref Range WBC 6690-2 6.28 th/cmm L=5.00 H=10.00 NEUT % 65.3 % L=40.0 H=80.0 LYMPH % 20.9 % L=10.0 H=50.0 MONO % 57573-7 10.2 % L=2.0 H=12.0 EOS % 2.7 % L=0.0 H=8. 0 BASO % 0.6 % L=0.0 H=3. 0 IG % 2514-8 0.3 % L=0.0 H=1. 1 NRBC % 35402-2 0.0 % L=0.0 H=0. 0 NEUT abs count 751-8 4.1 th/cmm L=1.6 H= 8.4 LYMPH abs count 731-0 1.3 th/cmm L=1.5 H =4.0 MONO abs count 742-7 0.6 th/cmm L=0.2 H= 1.0 EOS abs count 711-2 0.2 th/cmm L=0.0 H=0 .5 BASO abs count 704-7 0.0 th/cmm L=0.0 H= 0.2 IG abs count 98843-3 0.0 th/cmm L=0.0 H=0. 1 NRBC abs count 21791-8 0.0 mil/cmm L=0.0 H= 0.0 RBC 789-8 4.58 mil/cmm L=4.30 H=6.20 HEMOGLOBIN 718-7 14.3 gm/dL L=13.0 H=17.0 HEMATOCRIT 4544-3 44 % L=45 H=52 MCV 787-2 95 fL L=82 H=92 MCH 785-6 31.2 pg L=27.0 H=31.0 MCHC 786-4 32.9 % L=32.0 H=36.0 RDW-SD 788-0 47.1 fL L=39.0 H=49.0 PLATELET COUNT 777-3 INVALID N/A L=150 H= [address] invalid N/A Platelet est. Adequate N/A CBC W/ DIFFERENTIAL - Collect Date/Time: 01/19/2021 06:10 Test Name Code Test Result Test Units Test Ref Range WBC 6690-2 4.36 th/cmm L=5.00 H=10.00 NEUT % 60.5 % L=40.0 H=80.0 LYMPH % 28.4 % L=10.0 H=50.0 MONO % 07020-9 8.9 % L=2.0 H=12.0 EOS % 0.9 % L=0.0 H=8. 0 BASO % 1.1 % L=0.0 H=3. 0 IG % 2514-8 0.2 % L=0.0 H=1. 1 NRBC % 50914-7 0.0 % L=0.0 H=0. 0 NEUT abs count 751-8 2.6 th/cmm L=1.6 H= 8.4 LYMPH abs count 731-0 1.2 th/cmm L=1.5 H =4.0 MONO abs count 742-7 0.4 th/cmm L=0.2 H= 1.0 EOS abs count 711-2 0.0 th/cmm L=0.0 H=0 .5 BASO abs count 704-7 0.1 th/cmm L=0.0 H= 0.2 IG abs count 98623-1 0.0 th/cmm L=0.0 H=0. 1 NRBC abs count 92158-5 0.0 mil/cmm L=0.0 H= 0.0 RBC 789-8 4.41 mil/cmm L=4.30 H=6.20 HEMOGLOBIN 718-7 13.8 gm/dL L=13.0 H=17.0 HEMATOCRIT 4544-3 41 % L=45 H=52 MCV 787-2 92 fL L=82 H=92 MCH 785-6 31.3 pg L=27.0 H=31.0 MCHC 786-4 34.1 % L=32.0 H=36.0 RDW-SD 788-0 44.9 fL L=39.0 H=49.0 PLATELET COUNT 777-3 174 th/cmm L=150 H= 450 CBC W/ DIFFERENTIAL - Collect Date/Time: 01/18/2021 09:40 Test Name Code Test Result Test Units Test Ref Range WBC 6690-2 5.15 th/cmm L=5.00 H=10.00 NEUT % 68.8 % L=40.0 H=80.0 LYMPH % 21.4 % L=10.0 H=50.0 MONO % 99428-5 7.6 % L=2.0 H=12.0 EOS % 0.6 % L=0.0 H=8. 0 BASO % 1.2 % L=0.0 H=3. 0 IG % 2514-8 0.4 % L=0.0 H=1. 1 NRBC % 90418-9 0.0 % L=0.0 H=0. 0 NEUT abs count 751-8 3.6 th/cmm L=1.6 H= 8.4 LYMPH abs count 731-0 1.1 th/cmm L=1.5 H =4.0 MONO abs count 742-7 0.4 th/cmm L=0.2 H= 1.0 EOS abs count 711-2 0.0 th/cmm L=0.0 H=0 .5 BASO abs count 704-7 0.1 th/cmm L=0.0 H= 0.2 IG abs count 18079-9 0.0 th/cmm L=0.0 H=0. 1 NRBC abs count 14742-8 0.0 mil/cmm L=0.0 H= 0.0 RBC 789-8 4.36 mil/cmm L=4.30 H=6.20 HEMOGLOBIN 718-7 13.7 gm/dL L=13.0 H=17.0 HEMATOCRIT 4544-3 40 % L=45 H=52 MCV 787-2 91 fL L=82 H=92 MCH 785-6 31.4 pg L=27.0 H=31.0 MCHC 786-4 34.7 % L=32.0 H=36.0 RDW-SD 788-0 45.1 fL L=39.0 H=49.0 PLATELET COUNT 777-3 163 th/cmm L=150 H= 450 CBC W/ DIFFERENTIAL - Collect Date/Time: 01/18/2021 06:30 Test Name Code Test Result Test Units Test Ref Range WBC 6690-2 5.72 th/cmm L=5.00 H=10.00 NEUT % 65.4 % L=40.0 H=80.0 LYMPH % 21.0 % L=10.0 H=50.0 MONO % 82638-1 8.9 % L=2.0 H=12.0 EOS % 3.5 % L=0.0 H=8. 0 BASO % 0.9 % L=0.0 H=3. 0 IG % 2514-8 0.3 % L=0.0 H=1. 1 NRBC % 30718-0 0.0 % L=0.0 H=0. 0 NEUT abs count 751-8 3.7 th/cmm L=1.6 H= 8.4 LYMPH abs count 731-0 1.2 th/cmm L=1.5 H =4.0 MONO abs count 742-7 0.5 th/cmm L=0.2 H= 1.0 EOS abs count 711-2 0.2 th/cmm L=0.0 H=0 .5 BASO abs count 704-7 0.1 th/cmm L=0.0 H= 0.2 IG abs count 26722-2 0.0 th/cmm L=0.0 H=0. 1 NRBC abs count 99087-8 0.0 mil/cmm L=0.0 H= 0.0 RBC 789-8 4.29 mil/cmm L=4.30 H=6.20 HEMOGLOBIN 718-7 13.5 gm/dL L=13.0 H=17.0 HEMATOCRIT 4544-3 39 % L=45 H=52 MCV 787-2 92 fL L=82 H=92 MCH 785-6 31.5 pg L=27.0 H=31.0 MCHC 786-4 34.4 % L=32.0 H=36.0 RDW-SD 788-0 45.8 fL L=39.0 H=49.0 PLATELET COUNT 777-3 170 th/cmm L=150 H= 450 CBC W/ DIFFERENTIAL - Collect Date/Time: 01/18/2021 00:58 Test Name Code Test Result Test Units Test Ref Range WBC 6690-2 7.11 th/cmm L=5.00 H=10.00 NEUT % 76.5 % L=40.0 H=80.0 LYMPH % 15.3 % L=10.0 H=50.0 MONO % 86236-7 7.0 % L=2.0 H=12.0 EOS % 0.1 % L=0.0 H=8. 0 BASO % 0.8 % L=0.0 H=3. 0 IG % 2514-8 0.3 % L=0.0 H=1. 1 NRBC % 70351-8 0.0 % L=0.0 H=0. 0 NEUT abs count 751-8 5.4 th/cmm L=1.6 H= 8.4 LYMPH abs count 731-0 1.1 th/cmm L=1.5 H =4.0 MONO abs count 742-7 0.5 th/cmm L=0.2 H= 1.0 EOS abs count 711-2 0.0 th/cmm L=0.0 H=0 .5 BASO abs count 704-7 0.1 th/cmm L=0.0 H= 0.2 IG abs count 04169-9 0.0 th/cmm L=0.0 H=0. 1 NRBC abs count 62760-7 0.0 mil/cmm L=0.0 H= 0.0 RBC 789-8 4.43 mil/cmm L=4.30 H=6.20 HEMOGLOBIN 718-7 13.8 gm/dL L=13.0 H=17.0 HEMATOCRIT 4544-3 40 % L=45 H=52 MCV 787-2 91 fL L=82 H=92 MCH 785-6 31.2 pg L=27.0 H=31.0 MCHC 786-4 34.2 % L=32.0 H=36.0 RDW-SD 788-0 44.9 fL L=39.0 H=49.0 PLATELET COUNT 777-3 193 th/cmm L=150 H= 450 PLATELET COUNT - Collect Date/Time: 01/02 16:07 Test Name Code Test Result Test Units Test Ref Range PLATELET COUNT 777-3 171 th/cmm L=150 H= 450 PT PROTHROMBIN TIME - Collect Date/Time: 01/18/2021 09:40 Test Name Code Test Result Test Units Test Ref Range PROTIME 5902-2 11.0 seconds L=9.3 H=11 .4 INR 61058-6 1.08 L=2.00 H=3. 00 PTT PARTIAL THROMBOPLASTIN TIME - [facility] t Date/Time: 01/18/2021 16:07 Test Name Code Test Result Test Units Test Ref Range PTT 97043-1 46 seconds L=24 H=32 PTT PARTIAL THROMBOPLASTIN TIME - [facility] t Date/Time: 01/18/2021 09:40 Test Name Code Test Result Test Units Test Ref Range PTT 73161-7 25 seconds L=24 H=32 JLUIS COVID GENEXPERT - Collect Date/Ti me: 01/18/2021 01:45 Test Name Code Test Result Test Units Test Ref Range COVID 48619-7 NEGATIVE N/A Normal: Negativ e Active Medications Medication Code Dose Units Frequency Route Modification Start Date/Time Acetaminophen 748387 2407 MILLIGRAMS NEEDED ORAL 08/25 500MG Oral EVERY 6 14:55 Capsule HOURS Prescription Detail TAKE 1000 MILLIGRAMS ORAL NEEDED EVERY 6 HOURS Albuterol Sulfate 1963950 1 EACH NEEDED INHALATION 0 08/25/2021 0.09MG/1Actuation FOUR TIMES 14: 55 Inhalation Suspension A DAY Prescription Detail 1 EACH INHALATION NEEDED FOUR TIMES A DAY Losartan 004385 1 TABLET DAILY ORAL 08/25/2021 Potassium 100MG 14:55 Oral Tablet Prescription Detail TAKE 1 TABLET ORAL DAILY Atorvastatin 860231 80 MILLIGRAMS DAILY ORAL 08/25/19 22 Calcium 80MG Oral 14:54 Tablet Prescription Detail TAKE 80 MILLIGRAMS ORAL JEFFREY Y Metoprolol 657463 50 MILLIGRAMS ORAL 08/25/2021 Succinate 50MG 14:54 Oral Tablet, Extended Release Prescription Detail TAKE 50 MILLIGRAMS ORAL amLODIPine 579695 5 MILLIGRAMS DAILY ORAL 08/25/2021 Besylate 5MG 14:53 Oral Tablet Prescription Detail TAKE 5 MILLIGRAMS ORAL DAILY Furosemide 40MG 481938 40 MILLIGRAMS DAILY ORAL 08/25 Oral Tablet 14:53 Prescription Detail TAKE 40 MILLIGRAMS ORAL JEFFREY Y Pantoprazole 793017 40 MILLIGRAMS DAILY ORAL 08/25/19 22 Sodium 40 MG Oral 14:51 Tablet, Delayed Release Prescription Detail TAKE 40 MILLIGRAMS ORAL JEFFREY Y Nitroglycerin 436536 0.4 MILLIGRAMS PRN SUBLINGUAL 01/03 0.4MG Sublingual Q5MIN 08:37 Tablet Prescription Detail DISSOLVE 0.4 MILLIGRAMS SUBL INGUAL PRN Q5MIN Aspirin 81MG 963470 81 MILLIGRAMS DAILY ORAL 07/04/20 20 Oral Tablet, 09:23 Enteric Coated Prescription Detail TAKE 81 MILLIGRAMS ORAL JEFFREY Y Medications Administered During Visit Medication Dose Units Frequency Route Date/Time of Last Dose ASPIRIN TABLET E.C.: 81 MG DAILY PO 01/03 81MG 08:38 METOPROLOL TARTRATE 50 MG BID PO 01/19 TABLET: 50MG 08:17 TICAGRELOR TABLET: 180 MG X1 PO 2020 90MG 09:55 HEPARIN INJ SDV: 6500 UNITS X1 IVP 01/19/20 5,000 UNITS/ML 09:50 TICAGRELOR TABLET: 180 MG X1 PO 2020 90MG 20:30 FLUTICASONE NASAL 1 SPRAY BID NASAL EACH 021 SPRAY 0.05% NOSTRIL 08:45 LORazepam INJ 1 MG PRN Q4H IVP 01/23/2021 SYRINGE: 2MG/ML 08:40 MORPHINE INJ SYRINGE: 2 MG PRN Q4H IVP 2MG/ML 12:04 SPIRONOLACTONE 12.5 MG DAILY PO 01/23/2021 TABLET: 25MG 08:38 HEPARIN PREMIX IV 1300 UNITS CONT IV 021 BA:52 25,000UNITS/250ML NITROGLYCERIN 1 INCH Q6H TOP 01/19/2021 OINTMENT FOILPACK 06:27 2%:1GRAM AmLODIPine TABLET: 5 MG DAILY PO 2020 5MG 08:38 AmLODIPine TABLET: 10 MG DAILY PO 2020 10MG 08:17 METOPROLOL SUCCINATE 50 MG DAILY PO 01/03 TABLET ER: 50MG 08:38 MORPHINE INJ SYRINGE: 2 MG X1 IVP 2MG/ML 23:42 VALSARTAN TABLET: 160 MG DAILY PO 021 160MG 07:42 LOSARTAN TABLET: 50MG 50 MG X1 PO 11:51 LOSARTAN TABLET: 50MG 100 MG DAILY PO 08:38 ATORVASTATIN TABLET: 10 MG X1 PO 01/03 10MG 08:45 NITROGLYCERIN TABLET 0.4 MG PRN Q5MIN SL 01/03 SL (25CT): 0.4MG 23:06 FUROSEMIDE INJ SDV: 40 MG BID (0800 AND IVP 40MG/4ML 1459) 15:29 OxyCODONE TABLET no 5 MG PRN Q4H PO 01/03 apap added: 5mg 06:27 ALUM/MAG/SIM SUSP: 30 ML PRN QID PO 2020 2400/2400/240MG/30ML 23:5 0 CALCIUM CARBONATE TAB 500 MG PRN Q2H CHEW CHEWABLE UD: 500MG 20:41 LIDOCAINE VISCOUS 2% 30 ML X1 PO 01/03 100ML BOTTLE 22:06 ALUM/MAG/SIM SUSP: 30 ML X1 PO 2020 2400/2400/240MG/30ML 22:0 7 DiphenhydrAMINE SOLN: 50 MG X1 PO 25MG/10ML 22:07 SODIUM CHLORIDE 0.9% 1000 ML X1 IV 01/03 1000ML IV 00:14 FUROSEMIDE TABLET: 40 MG BID (0800 AND PO 40MG 1459) 14:49 TICAGRELOR TABLET: 90 MG BID PO 2020 90MG 08:38 FUROSEMIDE TABLET: 40 MG DAILY PO 2020 40MG 08:38 SODIUM CHLORIDE 0.9% 2 ML Q8H IVP 01/02 10ML FLUSH 15:29 ACETAMINOPHEN TABLET: 650 MG PRN Q4H PO 325MG 03:36 ONDANSETRON INJ SDV: 4 MG PRN Q6H IVP 01/03 4MG/2ML 22:58 ALBUTEROL/IPRATROP 3 ML PRN Q4H INH 2020 UPDRAFT:2.5/0.5MG/3ML 11: 16 Encounters Encounter Diagnosis Diagnosis Code Start Date 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 You had the following tests done: BASIC METABOLIC PANEL (BMP) CBC W/ DIFFERENTIAL TROPONIN- I BASIC METABOLIC PANEL (BMP) TROPONIN-I BASIC METABOLIC PA KARMEN (BMP) TROPONIN-I BASIC METABOLIC PANEL (BMP) BNP (PRO- B NATRIURETIC PEPTIDE) TROPONIN-I BASIC METABOLIC PANEL (BMP) TROPONIN-I BASIC METABOLIC PANEL (BMP) CBC W/ DIFFERENTIAL PLATELET COUNT PTT PARTIAL THROMBOPLASTIN TIME TROPONIN-I CBC W/ DIFFERENTIAL PT PROTHROMBIN TIME PTT PARTIAL TH ROMBOPLASTIN TIME BASIC METABOLIC PANEL (BMP) CBC W/ DIFFERENTIAL TROPONIN-I [facility] BNP (PRO-B NATRIURETI C PEPTIDE) CBC W/ DIFFERENTIAL COMPREHENSIVE METABOLIC PANEL (CMP) TROPONIN-I ADM. You were discharged from [facility] on 01/23/2021 12:05 Should you have any questions prior to d ischarge, please contact a member of your healthcare team. If you have left the ho spital and have any questions, please contact your primary care physician. Chief Complaint and Reason For Visit Chief Complaint Date of Onset CHF 01/18/2021 Function Status Description Code Date Type Status No Impairments [id number] 07/04/2020 Functional Active Plan of Care Unknown or Not Available. Referral/Transition of Care Unknown or Not Available.
--- OUTSIDE RECORDS SUMMARY | 2021-08-28 10:52 | XMS_ITS | CCD ---
:1960 Author Care Team Providers Name Role Phone FADI ENGLE Attending Physician Unavailable Katia COYNE Er Physician 1 Unavailable Donald TRISTAN (Secondary) Physician Unavailab Flores Registered Nurse Unavailable Vital Signs Vital Sign Value Unit Date/Time Recent/Initial? BMI (Body Mass Index) 25.27 kg/m^2 08/20/2021 13:05 In itial VS Weight Measured 230 lbs 08/20/2021 13:05 Initial VS Height 80 in 08/20/2021 13:05 Initial VS BSA (Body Surface 2.43 m^2 08/20/2021 13:05 Initia l VS Area) Respiratory Rate 22 bpm 08/20/2021 13:05 Initial VS Heart Rate 77 bpm 08/20/2021 13:05 Initial VS O2 % BldC Oximetry 97 % 08/20/2021 13:05 Initi al VS BP Systolic 168 mmHg 08/20/2021 13:42 Initial VS BP Diastolic 98 mmHg 08/20/2021 13:42 Initial VS Body Temperature 36.8 degrees 08/20/2021 13:42 Initial VS Weight Measured 260 lbs 08/25/2021 04:42 Most Rec ent VS BP Systolic 156 mmHg 08/25/2021 16:05 Most Recent VS BP Diastolic 78 mmHg 08/25/2021 16:05 Most Recent VS Respiratory Rate 20 bpm 08/25/2021 16:05 Most Re cent VS Heart Rate 67 bpm 08/25/2021 16:05 Most Recent VS O2 % BldC Oximetry 96 % 08/25/2021 16:05 Most Recent VS Body Temperature 36.5 degrees 08/25/2021 16:05 Most Re cent VS Allergies Allergy Code Allergy Type Reaction Status No Known Allergies 0 No known allergies Act michelle Procedures Unknown or Not Available. History of Immunizations Immunization Code Date COVID-19, mRNA, LNP-S, PF, 100 mcg or 50 mcg dose 207 08/22/2021 influenza, injectable, quadrivalent, preservative free 150 08/25/2021 Problems Problem Code Start Date Resolved Date Status CAD 27382120 Active Hypertension 39496949 Active AFIB 55267846 Active Bradycardia 88705441 Active Acute on chronic 361256794 Active congestive heart failure Chest pain 94654545 Active Abdominal pain 08323584 Active CKD stage 3 716576112 Active ASCVD 94904066 Active Acute hypokalemia 88181548 08/20/2021 Resolved Ventricular tachycardia 41531457 08/21/2021 Reso lved HTN 84826810 08/20/2021 Resolved Acute on chronic 818354680 08/20/2021 Resolved diastolic heart failure NSTEMI 067942813 08/20/2021 Resolved Nicotine dependence 903482991 08/20/2021 Resolved with current use COPD 15015377 08/20/2021 Resolved Results BASIC METABOLIC PANEL (BMP) - Collect Da te/Time: 08/25/2021 06:15 Test Name Code Test Result Test Units Test Ref Range GLUCOSE 2345-7 95 mg/dL L=70 H=11 6 BUN 3094-0 28 mg/dL L=6 H=25 CREATININE 2160-0 1.29 mg/dL L=0.67 H=1.17 SODIUM SERUM 2951-2 139 mmol/L L=136 H=14 5 POTASSIUM SERUM 2823-3 4.3 mmol/L L=3.4 H =5.2 CHLORIDE SERUM 2075-0 103 mmol/L L=96 H= 110 CARBON DIOXIDE (CO2) 2028-9 30 mmol/L L=22 H=34 ANION GAP 92428-7 6.0 mmol/L CALCIUM SERUM 89652-0 8.2 mg/dL L=8.2 H=10.2 AGE 61 years eGFR (non-Afr.Amer.) 58695-3 57 mL/min eGFR (Afr-Croatian) 38782-0 69 mL/min BASIC METABOLIC PANEL (BMP) - Collect Da te/Time: 08/24/2021 06:44 Test Name Code Test Result Test Units Test Ref Range GLUCOSE 2345-7 91 mg/dL L=70 H=11 6 BUN 3094-0 33 mg/dL L=6 H=25 CREATININE 2160-0 1.44 mg/dL L=0.67 H=1.17 SODIUM SERUM 2951-2 141 mmol/L L=136 H=14 5 POTASSIUM SERUM 2823-3 4.3 mmol/L L=3.4 H =5.2 CHLORIDE SERUM 2075-0 102 mmol/L L=96 H= 110 CARBON DIOXIDE (CO2) 2027-9 32 mmol/L L=22 H=34 ANION GAP 08793-4 6.6 mmol/L CALCIUM SERUM 18270-5 8.5 mg/dL L=8.2 H=10.2 AGE 61 years eGFR (non-Afr.Amer.) 71740-6 50 mL/min eGFR (Afr-Croatian) 02630-4 60 mL/min BASIC METABOLIC PANEL (BMP) - Collect Da te/Time: 08/23/2021 06:25 Test Name Code Test Result Test Units Test Ref Range GLUCOSE 2345-7 98 mg/dL L=70 H=11 6 BUN 3094-0 33 mg/dL L=6 H=25 CREATININE 2160-0 1.61 mg/dL L=0.67 H=1.17 SODIUM SERUM 2951-2 140 mmol/L L=136 H=14 5 POTASSIUM SERUM 2823-3 3.7 mmol/L L=3.4 H =5.2 CHLORIDE SERUM 2075-0 102 mmol/L L=96 H= 110 CARBON DIOXIDE (CO2) 2027-9 32 mmol/L L=22 H=34 ANION GAP 03133-2 6.4 mmol/L CALCIUM SERUM 18665-2 8.9 mg/dL L=8.2 H=10.2 AGE 61 years eGFR (non-Afr.Amer.) 71128-1 44 mL/min eGFR (Afr-Croatian) 28574-7 53 mL/min BASIC METABOLIC PANEL (BMP) - Collect Da te/Time: 08/22/2021 06:15 Test Name Code Test Result Test Units Test Ref Range GLUCOSE 2345-7 114 mg/dL L=70 H=11 6 BUN 3094-0 23 mg/dL L=6 H=25 CREATININE 2160-0 1.34 mg/dL L=0.67 H=1.17 SODIUM SERUM 2951-2 142 mmol/L L=136 H=14 5 POTASSIUM SERUM 2823-3 3.5 mmol/L L=3.4 H =5.2 CHLORIDE SERUM 2075-0 103 mmol/L L=96 H= 110 CARBON DIOXIDE (CO2) 2028-9 31 mmol/L L=22 H=34 ANION GAP 63670-9 7.6 mmol/L CALCIUM SERUM 22997-1 8.8 mg/dL L=8.2 H=10.2 AGE 61 years eGFR (non-Afr.Amer.) 47826-6 54 mL/min eGFR (Afr-Croatian) 68249-2 66 mL/min BASIC METABOLIC PANEL (BMP) - Collect Da te/Time: 08/21/2021 06:10 Test Name Code Test Result Test Units Test Ref Range GLUCOSE 2345-7 92 mg/dL L=70 H=11 6 BUN 3094-0 21 mg/dL L=6 H=25 CREATININE 2160-0 1.43 mg/dL L=0.67 H=1.17 SODIUM SERUM 2951-2 144 mmol/L L=136 H=14 5 POTASSIUM SERUM 2823-3 3.8 mmol/L L=3.4 H =5.2 CHLORIDE SERUM 2075-0 107 mmol/L L=96 H= 110 CARBON DIOXIDE (CO2) 8-9 29 mmol/L L=22 H=34 ANION GAP 21841-3 7.6 mmol/L CALCIUM SERUM 76610-6 8.7 mg/dL L=8.2 H=10.2 AGE 61 years eGFR (non-Afr.Amer.) 30089-0 50 mL/min eGFR (Afr-Croatian) 08920-4 61 mL/min BNP (PRO-B NATRIURETIC PEPTIDE) - Colle t Date/Time: 08/20/2021 14:35 Test Name Code Test Result Test Units Test Ref Range NT-proBNP 45247-4 2138.0 pg/mL L=0.0 H=12 5 COMPREHENSIVE METABOLIC PANEL (CMP) - Co llect Date/Time: 08/20/2021 13:15 Test Name Code Test Result Test Units Test Ref Range GLUCOSE 2345-7 107 mg/dL L=70 H=11 6 BUN 3094-0 18 mg/dL L=6 H=25 CREATININE 2160-0 1.24 mg/dL L=0.67 H=1.17 SODIUM SERUM 2951-2 141 mmol/L L=136 H=14 5 POTASSIUM SERUM 2823-3 4.1 mmol/L L=3.4 H =5.2 CHLORIDE SERUM 2075-0 105 mmol/L L=96 H= 110 CARBON DIOXIDE (CO2) 2028-9 28 mmol/L L=22 H=34 ANION GAP 23825-3 7.9 mmol/L CALCIUM SERUM 28678-8 9.5 mg/dL L=8.2 H=10.2 BILIRUBIN TOTAL 1975-2 0.7 mg/dL L=0.0 H =1.3 ALK. PHOS. 6768-6 67 U/L L=46 H=11 6 SGOT (AST) 1920-8 17 U/L L=15 H=37 SGPT (ALT) 1742-6 29 U/L L=12 H=78 TOTAL PROTEIN 2885-2 7.7 gm/dL L=6.0 H=8 .0 ALBUMIN 1751-7 3.8 gm/dL L=3.4 H=5. 0 AGE 61 years eGFR (non-Afr.Amer.) 32475-4 59 mL/min eGFR (Afr-Croatian) 76358-1 72 mL/min LIPASE* - Collect Date/Time: 08/20/2021 13:15 Test Name Code Test Result Test Units Test Ref Range LIPASE 67 U/L L=73 H=39 3 MAGNESIUM SERUM* - Collect Date/Time: 13:15 Test Name Code Test Result Test Units Test Ref Range MAGNESIUM 90234-5 2.0 mg/dL L=1.8 H=2. 4 TROPONIN HIGH SENSITIVITY* - Collect Bassam e/Time: 08/21/2021 06:10 Test Name Code Test Result Test Units Test Ref Range TROPONIN HS 28.3 pg/mL L=0.0 H=60 .4 Specimen seq. Random N/A TROPONIN HIGH SENSITIVITY* - Collect Bassam e/Time: 08/20/2021 19:35 Test Name Code Test Result Test Units Test Ref Range TROPONIN HS 37.1 pg/mL L=0.0 H=60 .4 Specimen seq. Random N/A TROPONIN HIGH SENSITIVITY* - Collect Bassam e/Time: 08/20/2021 16:30 Test Name Code Test Result Test Units Test Ref Range TROPONIN HS 30.1 pg/mL L=0.0 H=60 .4 Specimen seq. stat N/A TROPONIN HIGH SENSITIVITY* - Collect Bassam e/Time: 08/20/2021 14:35 Test Name Code Test Result Test Units Test Ref Range TROPONIN HS 22.1 pg/mL L=0.0 H=60 .4 Specimen seq. repeat N/A TROPONIN HIGH SENSITIVITY* - Collect Bassam e/Time: 08/20/2021 13:15 Test Name Code Test Result Test Units Test Ref Range TROPONIN HS 17.7 pg/mL L=0.0 H=60 .4 Specimen seq. stat N/A CBC W/ DIFFERENTIAL* - Collect Date/Time : 08/21/2021 06:10 Test Name Code Test Result Test Units Test Ref Range WBC 6690-2 6.77 th/cmm L=5.00 H=10.00 NEUT % 69.8 % L=40.0 H=80.0 LYMPH % 19.8 % L=10.0 H=50.0 MONO % 30883-7 9.6 % L=2.0 H=12.0 EOS % 0.1 % L=0.0 H=8. 0 BASO % 0.4 % L=0.0 H=3. 0 IG % 2514-8 0.3 % L=0.0 H=1. 1 NRBC % 54081-0 0.0 % L=0.0 H=0. 0 NEUT abs count 751-8 4.7 th/cmm L=1.6 H= 8.4 LYMPH abs count 731-0 1.3 th/cmm L=1.5 H =4.0 MONO abs count 742-7 0.7 th/cmm L=0.2 H= 1.0 EOS abs count 711-2 0.0 th/cmm L=0.0 H=0 .5 BASO abs count 704-7 0.0 th/cmm L=0.0 H= 0.2 IG abs count 94596-2 0.0 th/cmm L=0.0 H=0. 1 NRBC abs count 30682-9 0.0 mil/cmm L=0.0 H= 0.0 RBC 789-8 3.97 mil/cmm L=4.30 H=6.20 HEMOGLOBIN 718-7 11.8 gm/dL L=13.0 H=17.0 HEMATOCRIT 4544-3 36 % L=45 H=52 MCV 787-2 90 fL L=82 H=92 MCH 785-6 29.7 pg L=27.0 H=31.0 MCHC 786-4 32.9 % L=32.0 H=36.0 RDW-SD 788-0 45.8 fL L=39.0 H=49.0 PLATELET COUNT 777-3 170 th/cmm L=150 H= 450 CBC W/ DIFFERENTIAL* - Collect Date/Time : 08/20/2021 13:15 Test Name Code Test Result Test Units Test Ref Range WBC 6690-2 7.87 th/cmm L=5.00 H=10.00 NEUT % 75.7 % L=40.0 H=80.0 LYMPH % 15.4 % L=10.0 H=50.0 MONO % 23640-4 7.8 % L=2.0 H=12.0 EOS % 0.4 % L=0.0 H=8. 0 BASO % 0.6 % L=0.0 H=3. 0 IG % 2514-8 0.1 % L=0.0 H=1. 1 NRBC % 74099-7 0.0 % L=0.0 H=0. 0 NEUT abs count 751-8 6.0 th/cmm L=1.6 H= 8.4 LYMPH abs count 731-0 1.2 th/cmm L=1.5 H =4.0 MONO abs count 742-7 0.6 th/cmm L=0.2 H= 1.0 EOS abs count 711-2 0.0 th/cmm L=0.0 H=0 .5 BASO abs count 704-7 0.1 th/cmm L=0.0 H= 0.2 IG abs count 69842-1 0.0 th/cmm L=0.0 H=0. 1 NRBC abs count 60301-0 0.0 mil/cmm L=0.0 H= 0.0 RBC 789-8 4.43 mil/cmm L=4.30 H=6.20 HEMOGLOBIN 718-7 13.0 gm/dL L=13.0 H=17.0 HEMATOCRIT 4544-3 40 % L=45 H=52 MCV 787-2 90 fL L=82 H=92 MCH 785-6 29.3 pg L=27.0 H=31.0 MCHC 786-4 32.6 % L=32.0 H=36.0 RDW-SD 788-0 45.1 fL L=39.0 H=49.0 PLATELET COUNT 777-3 186 th/cmm L=150 H= 450 JLUIS COVID FLU RSV GENEXPERT - Collect Date/Time: 08/20/2021 13:00 Test Name Code Test Result Test Units Test Ref Range COVID 82730-9 NEGATIVE N/A Normal: Negativ e INFLUENZA A DNA 03770-1 NEGATIVE N/A Normal: Nega tive INFLUENZA B DNA 88992-4 NEGATIVE N/A Normal: Nega tive RSV DNA 51242-5 NEGATIVE N/A Normal: Negativ e Active Medications Medication Code Dose Units Frequency Route Modification Start Date/Time Acetaminophen 657143 6077 MILLIGRAMS NEEDED ORAL 08/25 500MG Oral EVERY 6 14:55 Capsule HOURS Prescription Detail TAKE 1000 MILLIGRAMS ORAL NEEDED EVERY 6 HOURS Albuterol Sulfate 3939535 1 EACH NEEDED INHALATION 0 08/25/2021 0.09MG/1Actuation FOUR TIMES 14: 55 Inhalation Suspension A DAY Prescription Detail 1 EACH INHALATION NEEDED FOUR TIMES A DAY Losartan 665830 1 TABLET DAILY ORAL 08/25/2021 Potassium 100MG 14:55 Oral Tablet Prescription Detail TAKE 1 TABLET ORAL DAILY Atorvastatin 633216 80 MILLIGRAMS DAILY ORAL 08/25/19 22 Calcium 80MG Oral 14:54 Tablet Prescription Detail TAKE 80 MILLIGRAMS ORAL JEFFREY Y Metoprolol 928499 50 MILLIGRAMS ORAL 08/25/2021 Succinate 50MG 14:54 Oral Tablet, Extended Release Prescription Detail TAKE 50 MILLIGRAMS ORAL amLODIPine 578946 5 MILLIGRAMS DAILY ORAL 08/25/2021 Besylate 5MG 14:53 Oral Tablet Prescription Detail TAKE 5 MILLIGRAMS ORAL DAILY Furosemide 40MG 678214 40 MILLIGRAMS DAILY ORAL 08/25 Oral Tablet 14:53 Prescription Detail TAKE 40 MILLIGRAMS ORAL JEFFREY Y Pantoprazole 237712 40 MILLIGRAMS DAILY ORAL 08/25/19 Sodium 40 MG Oral 14:51 Tablet, Delayed Release Prescription Detail TAKE 40 MILLIGRAMS ORAL JEFFREY Y Nitroglycerin 434781 0.4 MILLIGRAMS PRN SUBLINGUAL 01/03 0.4MG Sublingual Q5MIN 08:37 Tablet Prescription Detail DISSOLVE 0.4 MILLIGRAMS SUBL INGUAL PRN Q5MIN Aspirin 81MG 866197 81 MILLIGRAMS DAILY ORAL 07/04/20 20 Oral Tablet, 09:23 Enteric Coated Prescription Detail TAKE 81 MILLIGRAMS ORAL JEFFREY Y Medications Administered During Visit Medication Dose Units Frequency Route Date/Time of Last Dose ASPIRIN TABLET 324 MG X1 CHEW 08/20/2021 CHEWABLE: 81MG 14:00 SODIUM CHLORIDE 0.9% 500 ML X1 IV 08/05 500ML 13:43 NITROGLYCERIN TABLET 0.4 MG PRN Q5MIN SL 08/05 SL (25CT): 0.4MG 17:26 MORPHINE INJ SYRINGE: 4 MG X1 IVP 4MG/ML 15:51 FUROSEMIDE INJ SDV: 40 MG X1 IVP 08/20 40MG/4ML 17:25 ACETAMINOPHEN TABLET: 650 MG PRN Q4H PO 325MG 20:22 DOCUSATE SODIUM 100 MG BID PO CAPSULE: 100MG 08:31 CALCIUM CARBONATE TAB 1000 MG PRN Q2H CHEW CHEWABLE UD: 500MG 06:16 SODIUM CHLORIDE 0.9% 2 ML Q8H IVP 08/06 FLUSH 10ML SYRINGE 08:28 MILK OF MAGNESIA SUSP 30 ML PRN DAILY PO UD: 2400MG/30ML 06:16 ONDANSETRON INJ SDV: 4 MG PRN Q4H IVP 08/05 4MG/2ML 23:26 FUROSEMIDE INJ SDV: 40 MG BID (0800 AND IVP 40MG/4ML 1459) 08:56 ALBUTEROL/IPRATROP 3 ML TID RESP INH 2021 UPDRAFT:2.5/0.5MG/3ML 15: 17 ASPIRIN TABLET E.C.: 81 MG DAILY PO 08/06 81MG 08:32 AmLODIPine TABLET: 10 MG DAILY PO 2021 10MG 08:50 LOSARTAN TABLET: 50MG 50 MG DAILY PO 08:50 LORazepam INJ 1 MG X1 IVP 08/20/2021 SYRINGE: 2MG/ML 21:52 METOPROLOL SUCCINATE 50 MG DAILY PO 08/06 TABLET ER: 50MG 08:32 LOSARTAN TABLET: 50MG 100 MG DAILY PO 08:31 AmLODIPine TABLET: 5 MG DAILY PO 2021 5MG 08:32 ATORVASTATIN TABLET: 80 MG BEDTIME PO 08/06 40MG 21:19 ISOSORBIDE 30 MG DAILY PO 08/25/2021 MONONITRATE SR 08:31 TABLET: 60MG LORazepam INJ 1 MG PRN Q6H IVP 08/22/2021 SYRINGE: 2MG/ML 20:12 NF-Moderna COVID-19 0.5 ML X1 IM 08/22 Vaccine IM Susp 12:13 PANTOPRAZOLE TABLET: 40 MG BID PO 08/06 40MG 08:32 POLYETHYLENE GLYCOL 17 GRAMS PRN DAILY PO 08/24 PACKET 3350:17GM 08:44 BISACODYL 10 MG PRN DAILY IL 08/23/2021 SUPPOSITORY: 10MG 14:10 KETOROLAC INJ SDV: 30 MG X1 IVP 2021 30MG/1ML 18:45 MAGNESIUM CITRATE 60 ML X1 PO 022 300ML BOTTLE 11:34 FUROSEMIDE TABLET: 40 MG DAILY PO 2021 40MG 08:31 KETOROLAC INJ SDV: 30 MG X1 IVP 2021 30MG/1ML 15:40 SODIUM CHLORIDE 0.9% 500 ML CONT IV 08/05 500ML 21:58 KETOROLAC INJ SDV: 30 MG PRN Q6H IVP 2021 30MG/1ML 09:44 TraMADol TABLET: 50MG 50 MG PRN Q4H PO 18:38 ACETAMINOPHEN TABLET: 975 MG PRN Q6H PO 325MG 08:31 LORazepam TABLET: 1 MG PRN Q6H PO 022 0.5MG 19:44 NITROGLYCERIN TABLET 0.4 MG PRN Q5MIN SL 08/06 SL (25CT): 0.4MG 19:25 METOCLOPRAMIDE INJ 10 MG X1 IVP 2021 SDV: 10MG/2ML 11:02 FUROSEMIDE INJ SDV: 60 MG X1 IVP 08/25 100MG/10ML 11:02 INFLUENZA 0.5 ML X1 IM 08/25/2021 QUADRIVALENT INJ SYR 18:1 5 0.5ML Encounters Unknown or Not Available. Social History Smoking Status Code Start Date End Date Current every day smoker [id number] Patient Decision Aids Unknown or Not Available. Discharge Instructions You were admitted to [facility] on 08/20/2021 17:33 You had the following tests done: BASIC METABOLIC PANEL (BMP) BASIC METABOLIC PANEL (BMP) B ASIC METABOLIC PANEL (BMP) BASIC METABOLIC PANEL (BMP) BASIC MET ABOLIC PANEL (BMP) CBC W/ DIFFERENTIAL* TROPONIN HIGH SEN SITIVITY* TROPONIN HIGH SENSITIVITY* TROPONIN HIGH SENSITIVITY* BNP (PRO-B NATRIURETIC PEPTIDE) TROPONIN HIGH SENSITIVITY* CBC W/ DIFFERENTIAL* COMPREHENSIVE METABOLIC PANEL (CMP) LIPASE* MAGNESIUM SERUM* TROPONIN HIGH SENSITIVITY* [facility] COVID FLU RSV GENEXPERT You were discharged from [facility] on 08/25/2021 16:10 Should you have any questions prior to d ischarge, please contact a member of your healthcare team. If you have left the spital and have any questions, please contact your primary care physician. Chief Complaint and Reason For Visit Chief Complaint Date of Onset CHF EXACERBATION 08/20/2021 Function Status Unknown or Not Available. Plan of Care Unknown or Not Available. Referral/Transition of Care Unknown or Not Available.
[2021-08-28 14:41] LABS: Iron 40 ug/dL (65-175); Total Iron Binding Capacity 325 ug/dL (250-450); Transferrin Sat 12 % (20-55)
[2021-08-28 14:50] LABS: Abs Immature Grans 0.03 10^3/uL (0.0-0.06); Absolute Basophil Count 0.02 10^3/uL (0.0-0.2); Absolute Eosinophil Count 0.25 10^3/uL (0.0-0.7); Absolute Lymphocyte Count 1.15 10^3/uL (1.2-3.4); Absolute Monocyte Count 1.13 10^3/uL (0.1-0.8); Absolute Neutrophil Count 5.66 10^3/uL (1.2-6.7); Basophils % 0.2; HCT 41.9 % (40.0-50.0); HGB 13.4 g/dL (13.5-17.5); Immature Grans % 0.4; MCH 28.6 pg (27.0-33.0); MCV 89.3 fL (80-95); MPV 10.4 fL (8.0-11.0); Monocytes % 13.7; Neutrophils % 68.7; Nucleated RBC 0 %; Platelet Count 213 10^3/uL (130-400); RBC 4.69 10^6/uL (4.36-5.78); RDW 13.8 % (11.8-14.1); RDW-SD 44.6 fL; WBC 8.24 10^3/uL (4.4-10.8)
[2021-08-28 15:09] LABS: Calculated LDL 42 mg/dL (<100); Cholesterol 102 mg/dL (<200); Folate 6.5 ng/mL (8.6-20.0); HDL Cholesterol 40 mg/dL (40-60); TSH (W/Ref FT4) 1.57 uIU/mL (0.36-3.74); Triglyceride 104 mg/dL (<150); Vitamin B12 460 pg/mL (193-986)
[2021-08-28 15:16] LABS: Hemoglobin A1C 5.7 % (<5.7)
[2021-08-28 22:50] LABS: Ferritin 73 ng/mL (22-322)
[2021-08-29 12:45] LABS: Anion Gap 11.4 mmol/L (3-11); BUN 22 mg/dL (7-18); CO2 28.6 mmol/L (21.0-32.0); CREATININE 1.3 mg/dL (0.70-1.30); Calcium 9.7 mg/dL (8.5-10.1); Chloride 102 mmol/L (98-107); Estimated GFR 56.12 (mL/min/1.73m2); Glucose 113 mg/dL (74-106); Potassium 3.9 mmol/L (3.5-5.1); Sodium 142 mmol/L (136-145)
== END 2021-08-28 10:46 | disposition home or self-care (01) ==
LOC: NCHCN 10:45
PROVIDERS: PCP Family Medicine; Visit Provider Nurse Practitioner Family
DX: E66.9 Obesity, unspecified (principal); D64.9 Anemia, unspecified; I10 Essential (primary) hypertension; I25.10 Atherosclerotic heart disease of native coronary artery without angina pectoris
CPT/HCPCS: 80048; 80061; 82607; 82728; 82746; 83036; 83540; 83550; 84443; 85025